=== PATIENT | male | born 1980 | race Two or more races ===

== ENCOUNTER 2022-10-07 11:50 | Emergency (ER) | payer OTHER, SELFPAY ==
[2022-10-07 11:52] VITALS: BP 122/80; PULSE 80; RESP 18; TEMP 36.8; O2SAT 100; BMI 26.4
--- NOTE | 2022-10-07 12:31 | ED.GENADULT ---
HPI - General Adult General Chief complaint: Skin/Abscess/Foreign Body Stated complaint: Cyst on R Leg Time Seen by Provider: 10/07/22 12:31 Source: patient Mode of arrival: ambulatory Limitations: no limitations History of Present Illness HPI narrative: Patient is a 42 year old assigned male at with no reported medical history presenting to the emergency department today with a cyst on his right leg. Patient states that for the last few days he has had a cyst developing on his right leg. Patient states that it started as an ingrown hair and he did pop it but it is still swollen and painful. Patient denies any dizziness, lightheadedness, abdominal pain, nausea, vomiting, fever, chills, blurry vision, double vision, loss of vision, chest pain, difficulty breathing, shortness of breath, back pain, night sweats, pain with urination, increased urinary frequency, increased urinary urgency, blood in his urine or stool, syncope or a near syncopal episode, recent trauma or falls, bowel incontinence, bladder incontinence, bowel retention, bladder retention, or any other complaints at this time. Onset (ago): day(s) Location: right and lower extremity Radiation: non-radiation Severity: mild Severity scale (1-10): 3 Quality: dull Pain Consistency: constant Relieving factors: none Exacerbating factors: none Associated symptoms: denies other symptoms Treatments prior to arrival: none Related Data Previous Rx's Medication Instructions Recorded cephalexin 500 mg capsule 500 mg PO Q6H 7 days #28 caps 10/07/22 doxycycline hyclate 100 mg tablet 100 mg PO BID 7 days #14 tabs 10/07/22 Allergies Allergy/AdvReac Type Severity Reaction Status Date / Time No Known Allergies Allergy Verified 10/07/22 13:11 Review of Systems Constitutional: Constitutional: Reports no additional constitutional complaints, Denies chills, Denies fever(s) and Denies night sweats Eyes: Eyes: Reports no additional eye complaints, Denies blurry vision, Denies change in vision, Denies diplopia, Denies eye discharge, Denies loss of vision and Denies eye pain ENT: Denies dizziness Cardiovascular: Cardiovascular: Reports no additional cardiovascular complaints, Denies chest pain, Denies lightheadedness, Denies Loss of Consciousness and Denies dyspnea Respiratory: Respiratory: Reports no additional respiratory complaints and Denies dyspnea Gastrointestinal: Gastrointestinal: Reports no additional gastrointestinal complaints, Denies abdominal pain, Denies melena, Denies hematochezia, Denies change in bowel habits and Denies change in stool character Genitourinary: Genitourinary: Reports no additional male genitourinary complaints, Denies hematuria, Denies oliguria, Denies difficulty urinating, Denies dysuria, Denies urinary frequency, Denies urinary hesitancy, Denies urinary incontinence and Denies urinary urgency Musculoskeletal: Musculoskeletal: Reports no additional musculoskeletal complaints, Denies numbness and Denies tingling Integumentary/Breasts: Comments: right leg cyst Neurologic: Denies dizziness, Denies loss of vision, Denies numbness and Denies tingling Psychiatric: Psychiatric: Reports no additional psychiatric complaints Endocrine: Endocrine: Reports no additional endocrine complaints Hematologic/Lymphatic: Hematologic/Lymphatic: Reports no additional hematologic/lymphatic complaints Allergic/Immunologic: Allergic/Immunologic: Reports no additional allergic/immunologic complaints PMFSH Past Medical History Attestation statement: The following information was validated with the patient. Source: old records reviewed Social History Social History Advance Directives: No Advance Directives Information Provided: Yes Physical Exam ED Vital Signs: Vital Signs - 24 hr 10/07/22 11:52 Temperature 98.3 F Pulse Rate 80 Respiratory Rate 18 Blood Pressure 122/80 Pulse Oximetry 100 Oxygen Delivery Method Room Air BMI result Body Mass Index 26.4 Const General: cooperative, no acute distress, alert and awake Nutritional Appearance: well nourished Orientation/consciousness: patient oriented x3 Limitations: no limitations [facility] Head: Yes normal to inspection and Yes atraumatic Ears: hearing grossly normal bilaterally and external ears normal General nose exam: Normal external nose present, no nasal discharge noted and no epistaxis Face and sinus: Yes normal facial exam, No abrasion and No laceration Mouth: Normal oral and palatal mucosa present, no drooling and no muffled voice Eyes General: appearance normal, both eyes and all related structures Periorbital: periorbital findings normal Eyelids: Yes eyelids normal Conjunctivae: conjunctivae normal Pupils: Equal, round and reactive pupils present EOM: EOMs intact bilaterally Neck Neck: Yes normal visual inspection, Yes full ROM and Yes no lymphadenopathy Chest Chest palpation & inspection: normal inspection of the chest Resp Effort & Inspection: normal respiratory effort and able to speak in complete sentences Auscultation: clear to auscultation bilaterally Cardio Rate: regular rate Rhythm: regular rhythm GI Inspection: Yes normal to inspection Palpation (GI): Soft to palpation, not firm, nontender, no guarding and not rigid Skin Other: small area of erythema to the right upper leg just superior to the right knee with a small area of dark tissue in the center Neuro General: patient oriented x3 and moves all extremities Cranial nerves: Yes Equal, round and reactive pupils present Cognition (Neuro): normal cognition Motor exam (neuro): 5/5 motor strength present throughout Sensory Exam: Normal double simultaneous stimulation for sensation Coordination: [id number] test normal Extrem General: Yes normal to inspection, Yes full ROM and Yes capillary refill normal Psych Appearance: grossly normal Mental Status: mental status grossly normal Affect: normal affect Attitude: cooperative Thought process: Normal thought process present Thought content: Normal thought content present Insight: Good insight present (Psych) Medical Decision Making MDM Narrative Medical decision making narrative: Patient is a 42 year old assigned male at with no reported medical history presenting to the emergency department today with right leg abscess. Patient's physical exam showed a small area of erythema to the right upper leg just superior of the right knee with a small area of darker tissue to the center of the abscess. No fluctuance appreciated. Patient's clinical presentation is most consistent with a ruptured abscess and given the darker appearance to aspects of the area, MRSA is considered. Patient is not septic. I explained my physical exam findings to the patient. I answered all questions asked by the patient. I stressed the importance of the patient taking his medication as prescribed. I stressed the importance of the patient following up with his primary care provider. I stressed the importance of the patient returning to the emergency department immediately if his symptoms were to worsen or if he were to develop any dizziness, shortness of breath, difficulty breathing, chest pain, blurry vision, loss of vision, nausea, vomiting, abdominal pain, fever, chills, back pain, or any other complaints. Patient verbalized agreement and understanding with this treatment plan and discharge. Medical Records Medical records reviewed: Yes I reviewed the patient's medical records. Discharge Plan Discharge Clinical Impression: Abscess Patient Disposition: Home, Self-Care Instructions: Abscess (ED) Additional Instructions: Apply warm compresses to the area. Follow up with your primary care provider. Return to the emergency department immediately if your symptoms worsen or if you develop any dizziness, shortness of breath, difficulty breathing, chest pain, blurry vision, loss of vision, nausea, vomiting, abdominal pain, fever, chills, back pain, or any other complaints. Prescriptions: New cephalexin 500 mg capsule 500 mg PO Q6H 7 Days Qty: 28 0RF doxycycline hyclate 100 mg tablet 100 mg PO BID 7 Days Qty: 14 0RF Referrals: [facility] Family Medicine [Provider Group] (Call to establish and follow up with a primary care provider. If you already have a primary care provider, please follow up with them. ) [facility] Primary Care, [facility] [Provider Group] (Call to establish and follow up with a primary care provider. If you already have a primary care provider, please follow up with them. ) [facility] Primary Care,[facility] [Provider Group] (Call to establish and follow up with a primary care provider. If you already have a primary care provider, please follow up with them. ) Stand Alone Forms: Work/School Release Interventions: ED Discharge Assessment Last Done: 10/07/22 13:27 Discharge Date/Time: 10/07/22 13:27 Print Language: Faroese
--- OUTSIDE RECORDS SUMMARY | 2022-10-07 13:08 | XMS_ITS | Continuity of Care Document ---
:1980 Author Organization [facility] Address [address] [place] [id number]- Care Team Providers Name Role Phone Bc Chinchilla MD Primary Care Physician [place] [facility](s[place] 02/07/[place] - 03/09/[address] [address]- Attending Physician: Admtr, [id number] Admitting Physician: Admtr, [id number] Referring Physician: Admtr, [id number] Allergies, Adverse Reactions, Alerts Substance Reaction Severity Status Contrast Dye Rash Active Immunizations Given and Recorded Vaccine Date Status Refusal Reason influenza virus vaccine, inactivated 09/27/20 Given influenza virus vaccine, inactivated 08/31/19 Given influenza virus vaccine, inactivated 09/18/18 Given pneumococcal 23-valent vaccine 08/31/19 Given tetanus/diphtheria/pertussis, acel(Tdap) 11/11/11 Given Medications albuterol 90 mcg/inh inhalation powder 1 puffs, Inhalation, Every 6 hours, PRN as needed, # 1 each, 11 Refills, Maintenance, 09/27/20 15:21:00 EST, Powder, [place], [place] - [id number], 1 puffs Inhalation Every 6 hours,PRN:as needed, 180, cm, 09/27/20 15:18:00 EST, Height... Start Date: 09/27/20 Status: Ordereddivalproex sodium 250 mg oral tablet, extended release 1 tablet, By Mouth, Daily, IN THE AFTERNOON., # 30 tablet, 5 Refills, Maintenance, 01/01/21 9:04:00 EST, [place], [place] - [id number], 180, cm, 09/27/20 15:39:00 EST, Height Start Date: 01/01/21 Status: Ordereddivalproex sodium 500 mg oral tablet, extended release See Instructions, TAKE ONE TABLET BY MOUTH EVERY MORNING AND TAKE 2 TABLETS BY MOUTH EVERY NIGHT AT BEDTIME, # 90 tablet, 5 Refills, Soft Stop, 01/01/21 9:04:00 EST, Tablet, [facility], [place] - [id number], 180, cm, 09/27/20 15:39:00 ES... Start Date: 01/01/21 Status: OrderedFlovent HFA 110 mcg/inh inhalation aerosol 1 puff, Inhalation, 2 times a day, # 1 each, 11 Refills, Maintenance, 09/27/20 15:21:00 EST, Aerosol, [facility], [place] - [id number], 180, cm, 09/27/20 15:18:00 EST, Height, 96.36, kg, 12/06/18 14:07:00 EST, Dry Weight Start Date: 09/27/20 Status: OrderedhydrOXYzine pamoate 50 mg oral capsule 1 capsule, By Mouth, 4 times a day, PRN NEEDED FOR ANXIETY, # 100 each, 1 Refills, Acute, 01/29/21 12:04:00 EDT, [facility], 180, cm, 09/27/20 15:39:00 EST, Height Start Date: 01/29/21 Status: OrderedNarcan Rescue Kit Narcan Rescue Kit, See Instructions, # 1 kit, Refills 0, Tot. Refills 0, Maintenance, Use as directed, 04/27/19 20:08:59 EDT, Compound Start Date: 04/27/19 Status: OrderedPARoxetine 20 mg oral tablet 1, tablet, By Mouth, Daily, # 30 tablet, Refills 11, Tot. Refills 0, Maintenance, 11/29/20 16:20:00 EST, Route to Pharmacy Electronically, [facility], 180, cm, 09/27/20 15:39:00 EST, Height, 96.36, kg, 12/06/18 14:07:00 EST, Dry Weight Start Date: 11/29/20 Status: OrderedtraZODone 100 mg oral tablet 2, tablet, By Mouth, Daily at bedtime, # 180 tablet, Refills 5, Tot. Refills 0, Maintenance, 11/29/20 15:41:00 EST, Route to Pharmacy Electronically, [facility], 180, cm, 09/27/20 15:39:00 EST, Height, 96.36, kg, 12/06/18 14:07:00 EST, Dry Weight Start Date: 11/29/20 Status: Ordered Problem List Condition Effective Dates Status Health Status Informant Anxiety(Confirmed) Active Bipolar disorder, Active unspecified(Confirmed) Cannabis use disorder, moderate, Active dependence(Confirmed) Intermittent asthma(Confirmed) Active Intermittent explosive Active disorder(Confirmed) Polysubstance abuse(Confirmed) Active Alcohol use disorder, severe, Active dependence(Confirmed)
--- OUTSIDE RECORDS SUMMARY | 2022-10-07 13:08 | XMS_ITS | Continuity of Care Document ---
:1980 Author Organization [facility] Address [address] [place] [address]- Care Team Providers Name Role Phone Bc Chinchilla MD Primary Care Physician Encounter [facility] Date(s): 01/19/21 - 02/18/[address] [address]- Allergies, Adverse Reactions, Alerts Substance Reaction Severity [...] 11 Refills, Maintenance, 09/27/20 15:21:00 EST, Powder, [facility] [id number], 1 puffs Inhalation Every 6 hours,PRN:as needed, 180, cm, 09/27/20 15:18:00 EST, Height... Start Date: 09/27/20 Status: Ordereddivalproex sodium 250 mg oral tablet, extended release 1 tablet, By Mouth, Daily, IN THE AFTERNOON., # 30 tablet, 5 Refills, Maintenance, 01/01/21 9:04:00 EST, [place], [place] - [id number], 180, cm, 09/27/20 15:39:00 EST, Height Start Date: 01/01/21 Status: Ordereddivalproex sodium 500 mg oral tablet, extended release See Instructions, TAKE ONE TABLET BY MOUTH EVERY MORNING AND TAKE 2 TABLETS BY MOUTH EVERY NIGHT AT BEDTIME, # 90 tablet, 5 Refills, Soft Stop, 01/01/21 9:04:00 EST, Tablet, [facility], [place] - [id number], 180, cm, 09/27/20 15:39:00 ES... Start Date: 01/01/21 Status: OrderedFlovent HFA 110 mcg/inh inhalation aerosol 1 puff, Inhalation, 2 times a day, # 1 each, 11 Refills, Maintenance, 09/27/20 15:21:00 EST, Aerosol, [facility], [place] - [id number], 180, cm, 09/27/20 15:18:00 EST, Height, 96.36, kg, 12/06/18 14:07:00 EST, Dry Weight Start Date: 09/27/20 Status: OrderedhydrOXYzine pamoate 50 mg oral capsule 1 capsule, By Mouth, 4 times a day, PRN NEEDED FOR ANXIETY, # 100 each, 1 Refills, Acute, 01/29/21 12:04:00 EDT, [facility], 180, cm, 09/27/20 15:39:00 EST, Height [...] 11/29/20 16:20:00 EST, Route to Pharmacy Electronically, [facility], 180, cm, 09/27/20 15:39:00 EST, Height, 96.36, kg, 12/06/18 14:07:00 EST, Dry Weight Start Date: 11/29/20 Status: OrderedtraZODone 100 mg oral tablet 2, tablet, By Mouth, Daily at bedtime, # 180 tablet, Refills 5, Tot. Refills 0, Maintenance, 11/29/20 15:41:00 EST, Route to Pharmacy Electronically, [facility], 180, cm, 09/27/20 15:39:00 EST, Height, 96.36, kg, 12/06/18 14:07:00 EST, Dry Weight Start Date: 11/29/20 Status: Ordered Problem List Condition Effective Dates Status Health Status Informant Anxiety(Confirmed) Active Bipolar disorder, Active unspecified(Confirmed) Cannabis use disorder, moderate, Active dependence(Confirmed) Intermittent asthma(Confirmed) Active Intermittent explosive Active disorder(Confirmed) Polysubstance abuse(Confirmed) Active Alcohol use disorder, severe, Active dependence(Confirmed)
--- OUTSIDE RECORDS SUMMARY | 2022-10-07 13:08 | XMS_ITS | Continuity of Care Document ---
:1980 Author Organization [facility] Address [address] [place] [address]- Care Team Providers Name Role Phone Bc Chinchilla MD Primary Care Physician Encounter [facility] [place] Date(s): 09/27/20 - 10/27/[address] [address]- Attending Physician: Admtr, [id number] Admitting Physician: Admtr, [...] 11 Refills, Maintenance, 09/27/20 15:21:00 EST, Powder, [place], [place] - [phone], 1 puffs Inhalation Every 6 hours,PRN:as needed, 180, cm, 09/27/20 15:18:00 EST, Height... Start Date: 09/27/20 Status: Ordereddivalproex sodium 250 mg oral tablet, extended release 1 tablet, By Mouth, Daily, IN THE AFTERNOON., # 30 tablet, 5 Refills, Maintenance, 07/03/20 9:17:00 EDT, [place], [place] - [id number], 180, cm, 08/31/19 10:06:00 EDT, Height, 96.36, kg, 12/06/18 14:07:00 EST, Dry Weight Start Date: 07/03/20 Status: Ordereddivalproex sodium 500 mg oral tablet, extended release See Instructions, TAKE ONE TABLET BY MOUTH EVERY MORNING AND TAKE 2 TABLETS BY MOUTH EVERY NIGHT AT BEDTIME, # 90 tablet, 2 Refills, Soft Stop, 10/04/20 9:16:00 EST, Tablet, [facility] [place], [place] - [id number], 180, cm, 09/27/20 15:39:00 ES... Start Date: 10/04/20 Status: OrderedFlovent HFA 110 mcg/inh inhalation aerosol 1 puff, Inhalation, 2 times a day, # 1 each, 11 Refills, Maintenance, 09/27/20 15:21:00 EST, Aerosol, [facility] [place], [place] - [id number], 180, cm, 09/27/20 15:18:00 EST, Height, 96.36, kg, 12/06/18 14:07:00 EST, Dry Weight Start Date: 09/27/20 Status: OrderedhydrOXYzine pamoate 50 mg oral capsule 1 capsule, By Mouth, 4 times a day, PRN NEEDED FOR ANXIETY, # 100 capsule, 2 Refills, Maintenance, 07/27/20 10:14:00 EDT, [facility] [place], [place] - [id number], 180, cm, 08/31/19 10:06:00 EDT, Height, 96.36, kg, 12/06/18 14:07:00 EST, Dry... Start Date: 07/27/20 Status: OrderedNarcan Rescue Kit Narcan Rescue Kit, See Instructions, # 1 kit, Refills 0, Tot. Refills 0, Maintenance, Use as directed, 04/27/19 20:08:59 EDT, Compound Start Date: 04/27/19 Status: OrderedPARoxetine 20 mg oral tablet 1, tablet, By Mouth, Daily, # 30 tablet, Refills 3, Tot. Refills 3, Maintenance, 07/27/20 10:15:00 EDT, Route to Pharmacy Electronically, [facility] [place], [place] - [id number], 180, cm, 08/31/19 10:06:00 EDT, Height, 96.36, kg, 12/06/18 14:07... Start Date: 07/27/20 Status: OrderedtraZODone 100 mg oral tablet See Instructions, 2 tabs PO QHS, # 180 tablet, Refills 5, Tot. Refills 5, Maintenance, 10/13/19 15:01:28 EST, Instructions Replace Required Details, Route to Pharmacy Electronically, [id number], [facility] [place],... Start Date: 10/13/19 Status: Ordered Problem List Condition Effective Dates Status Health Status Informant Anxiety(Confirmed) Active Bipolar disorder, Active unspecified(Confirmed) Cannabis use disorder, moderate, Active dependence(Confirmed) Intermittent asthma(Confirmed) Active Intermittent explosive Active disorder(Confirmed) Polysubstance abuse(Confirmed) Active Alcohol use disorder, severe, Active dependence(Confirmed)
--- OUTSIDE RECORDS SUMMARY | 2022-10-07 13:08 | XMS_ITS | Continuity of Care Document ---
:1980 Author Organization [facility] Address [address] [place] [address]- Care Team Providers Name Role Phone Bc Chinchilla MD Primary Care Physician Encounter [facility] Date(s): 11/29/20 - 12/29/[address] [address]- Allergies, Adverse Reactions, Alerts Substance Reaction Severity [...] 11 Refills, Maintenance, 09/27/20 15:21:00 EST, Powder, [facility] [id number], 1 puffs Inhalation Every 6 hours,PRN:as needed, 180, cm, 09/27/20 15:18:00 EST, Height... Start Date: 09/27/20 Status: Ordereddivalproex sodium 250 mg oral tablet, extended release 1 tablet, By Mouth, Daily, IN THE AFTERNOON., # 30 tablet, 5 Refills, Maintenance, 07/03/20 9:17:00 EDT, [place], [place] - [id number], 180, cm, 08/31/19 10:06:00 EDT, Height, 96.36, kg, 12/06/18 14:07:00 EST, Dry Weight Start Date: 07/03/20 Status: Ordereddivalproex sodium 500 mg oral tablet, extended release See Instructions, TAKE ONE TABLET BY MOUTH EVERY MORNING AND TAKE 2 TABLETS BY MOUTH EVERY NIGHT AT BEDTIME, # 90 tablet, 2 Refills, Soft Stop, 10/04/20 9:16:00 EST, Tablet, [facility], [place] - [id number], 180, cm, 09/27/20 15:39:00 ES... Start Date: 10/04/20 Status: OrderedFlovent HFA 110 mcg/inh inhalation aerosol 1 puff, Inhalation, 2 times a day, # 1 each, 11 Refills, Maintenance, 09/27/20 15:21:00 EST, Aerosol, [facility], [place] - [phone], 180, cm, 09/27/20 15:18:00 EST, Height, 96.36, kg, 12/06/18 14:07:00 EST, Dry Weight Start Date: 09/27/20 Status: OrderedhydrOXYzine pamoate 50 mg oral capsule 1 capsule, By Mouth, 4 times a day, PRN NEEDED FOR ANXIETY, # 100 each, 1 Refills, Acute, 11/29/20 16:20:00 EST, [facility], 180, cm, 09/27/20 15:39:00 EST, Height, 96.36, kg, 12/06/18 14:07:00EST, Dry Weight Start Date: 11/29/20 Status: OrderedNarcan Rescue Kit Narcan Rescue Kit, See Instructions, # 1 kit, Refills 0, Tot. Refills 0, Maintenance, Use as directed, 04/27/19 20:08:59 EDT, Compound Start Date: 04/27/19 Status: OrderedPARoxetine 20 mg oral tablet 1, tablet, By Mouth, Daily, # 30 tablet, Refills 11, Tot. Refills 0, Maintenance, 11/29/20 16:20:00 EST, Route to Pharmacy Electronically, [facility], 180, cm, 09/27/20 15:39:00 EST, Height, 96.36, kg, 12/06/18 14:07:00 EST, Dry Weight Start Date: 11/29/20 Status: OrderedtraZODone 100 mg oral tablet 2, tablet, By Mouth, Daily at bedtime, # 180 tablet, Refills 5, Tot. Refills 0, Maintenance, 11/29/20 15:41:00 EST, Route to Pharmacy Electronically, [facility], 180, cm, 09/27/20 15:39:00 EST, Height, 96.36, kg, 12/06/18 14:07:00 EST, Dry Weight Start Date: 11/29/20 Status: Ordered Problem List Condition Effective Dates Status Health Status Informant Anxiety(Confirmed) Active Bipolar disorder, Active unspecified(Confirmed) Cannabis use disorder, moderate, Active dependence(Confirmed) Intermittent asthma(Confirmed) Active Intermittent explosive Active disorder(Confirmed) Polysubstance abuse(Confirmed) Active Alcohol use disorder, severe, Active dependence(Confirmed)
--- OUTSIDE RECORDS SUMMARY | 2022-10-07 13:08 | XMS_ITS | Continuity of Care Document ---
:[address] [facility] Address [address] [place] [address]- Care Team Providers Name Role Phone Bc Chinchilla MD Primary Care Physician [facility] Date(s): 01/01/21 - 01/31/[address] [address]- Allergies, Adverse Reactions, Alerts Substance Reaction Severity [...] 11 Refills, Maintenance, 09/27/20 15:21:00 EST, Pow[place], [facility] [id number], 1 puffs Inhalation Every 6 hours,PRN:as needed, 180, cm, 09/27/20 15:18:00 EST, Height... Start Date: 09/27/20 Status: Ordereddivalproex sodium 250 mg oral tablet, extended release 1 tablet, By Mouth, Daily, IN THE AFTERNOON., # 30 tablet, 5 Refills, Maintenance, 01/01/21 9:04:00 EST, [place], [place] - [id number], 180, cm, 09/27/20 15:39:00 EST, Height Start Date: 01/01/21 Status: Ordereddivalproex sodium 500 mg oral tablet, extended release See Instructions, TAKE ONE TABLET BY MOUTH EVERY MORNING AND TAKE 2 TABLETS BY MOUTH EVERY NIGHT AT BEDTIME, # 90 tablet, 5 Refills, Soft Stop, 01/01/21 9:04:00 EST, Tablet, [facility], [place] - [id number], 180, cm, 09/27/20 15:39:00 ES... Start Date: 01/01/21 Status: OrderedFlovent HFA 110 mcg/inh inhalation aerosol 1 puff, Inhalation, 2 times a day, # 1 each, 11 Refills, Maintenance, 09/27/20 15:21:00 EST, Aerosol, [facility], [place] - [id number], 180, cm, 09/27/20 15:18:00 EST, Height, 96.36, kg, 12/06/18 14:07:00 EST, Dry Weight Start Date: 09/27/20 Status: OrderedhydrOXYzine pamoate 50 mg oral capsule 1 capsule, By Mouth, 4 times a day, PRN NEEDED FOR ANXIETY, # 100 each, 1 Refills, Acute, 01/29/21 12:04:00 EDT, [facility], 180, cm, 09/27/20 15:39:00 EST, Height [...] 11/29/20 16:20:00 EST, Route to Pharmacy Electronically, [facility], 180, cm, 09/27/20 15:39:00 EST, Height, 96.36, kg, 12/06/18 14:07:00 EST, Dry Weight Start Date: 11/29/20 Status: OrderedtraZODone 100 mg oral tablet 2, tablet, By Mouth, Daily at bedtime, # 180 tablet, Refills 5, Tot. Refills 0, Maintenance, 11/29/20 15:41:00 EST, Route to Pharmacy Electronically, [facility], 180, cm, 09/27/20 15:39:00 EST, Height, 96.36, kg, 12/06/18 14:07:00 EST, Dry Weight Start Date: 11/29/20 Status: Ordered Problem List Condition Effective Dates Status Health Status Informant Anxiety(Confirmed) Active Bipolar disorder, Active unspecified(Confirmed) Cannabis use disorder, moderate, Active dependence(Confirmed) Intermittent asthma(Confirmed) Active Intermittent explosive Active disorder(Confirmed) Polysubstance abuse(Confirmed) Active Alcohol use disorder, severe, Active dependence(Confirmed)
--- OUTSIDE RECORDS SUMMARY | 2022-10-07 13:08 | XMS_ITS | Continuity of Care Document ---
:1980 Author Organization [facility] Address [address] [place] [address]- Care Team Providers Name Role Phone Bc Chinchilla MD Primary Care Physician Encounter [facility] Date(s): 11/29/20 - 12/29/[address] [address]- Allergies, Adverse Reactions, Alerts Substance Reaction Severity [...] 11 Refills, Maintenance, 09/27/20 15:21:00 EST, Powder, [facility] [id number], 1 puffs Inhalation Every 6 hours,PRN:as needed, 180, cm, 09/27/20 15:18:00 EST, Height... Start Date: 09/27/20 Status: Ordereddivalproex sodium 250 mg oral tablet, extended release 1 tablet, By Mouth, Daily, IN THE AFTERNOON., # 30 tablet, 5 Refills, Maintenance, 07/03/20 9:17:00 EDT, [place], [place] - [id number], 180, cm, 08/31/19 10:06:00 EDT, Height, 96.36, kg, 12/06/18 14:07:00 EST, Dry Weight Start Date: 07/03/20 Status: Ordereddivalproex sodium 500 mg oral tablet, extended release See Instructions, TAKE ONE TABLET BY MOUTH EVERY MORNING AND TAKE 2 TABLETS BY MOUTH EVERY NIGHT AT BEDTIME, # 90 tablet, 2 Refills, Soft Stop, 10/04/20 9:16:00 EST, Tablet, [facility], [place] - [id number], 180, cm, 09/27/20 15:39:00 ES... Start Date: 10/04/20 Status: OrderedFlovent HFA 110 mcg/inh inhalation aerosol 1 puff, Inhalation, 2 times a day, # 1 each, 11 Refills, Maintenance, 09/27/20 15:21:00 EST, Aerosol, [facility], [place] - [id number], 180, cm, 09/27/20 15:18:00 EST, Height, 96.36, kg, 12/06/18 14:07:00 EST, Dry Weight Start Date: 09/27/20 Status: OrderedhydrOXYzine pamoate 50 mg oral capsule 1 capsule, By Mouth, 4 times a day, PRN NEEDED FOR ANXIETY, # 100 each, 1 Refills, Acute, 11/29/20 16:20:00 EST, [facility], 180, cm, 09/27/20 15:39:00 EST, Height, 96.36, [...] 11/29/20 16:20:00 EST, Route to Pharmacy Electronically, [facility], 180, cm, 09/27/20 15:39:00 EST, Height, 96.36, kg, 12/06/18 14:07:00 EST, Dry Weight Start Date: 11/29/20 Status: OrderedtraZODone 100 mg oral tablet 2, tablet, By Mouth, Daily at bedtime, # 180 tablet, Refills 5, Tot. Refills 0, Maintenance, 11/29/20 15:41:00 EST, Route to Pharmacy Electronically, [facility], 180, cm, 09/27/20 15:39:00 EST, [...]
--- OUTSIDE RECORDS SUMMARY | 2022-10-07 13:08 | XMS_ITS | Continuity of Care Document ---
:1980 Author Organization [facility] Address [address] [place] [address]- Care Team Providers Name Role Phone Bc Chinchilla MD Primary Care Physician [facility] Date(s): 11/28/20 - 12/28/[address] [address]- Allergies, Adverse Reactions, Alerts Substance Reaction Severity [...] 11 Refills, Maintenance, 09/27/20 15:21:00 EST, Powder, [facility] [phone], 1 puffs Inhalation Every 6 hours,PRN:as needed, 180, cm, 09/27/20 15:18:00 EST, Height... Start Date: 09/27/20 Status: Ordereddivalproex sodium 250 mg oral tablet, extended release 1 tablet, By Mouth, Daily, IN THE AFTERNOON., # 30 tablet, 5 Refills, Maintenance, 07/03/20 9:17:00 EDT, [place], [place] - [id number], 180, cm, 08/31/19 10:06:00 EDT, Height, 96.36, kg, 12/06/18 14:07:00 EST, Dry Weight Start Date: 07/03/20 Status: Ordereddivalproex sodium 500 mg oral tablet, extended release See Instructions, TAKE ONE TABLET BY MOUTH EVERY MORNING AND TAKE 2 TABLETS BY MOUTH EVERY NIGHT AT BEDTIME, # 90 tablet, 2 Refills, Soft Stop, 10/04/20 9:16:00 EST, Tablet, [facility], [place] - [id number], 180, cm, 09/27/20 15:39:00 ES... Start Date: 10/04/20 Status: OrderedFlovent HFA 110 mcg/inh inhalation aerosol 1 puff, Inhalation, 2 times a day, # 1 each, 11 Refills, Maintenance, 09/27/20 15:21:00 EST, Aerosol, [place], [place] - [id number], 180, cm, 09/27/20 15:18:00 EST, Height, 96.36, kg, 12/06/18 14:07:00 EST, Dry Weight Start Date: 09/27/20 Status: OrderedhydrOXYzine pamoate 50 mg oral capsule 1 capsule, By Mouth, 4 times a day, PRN NEEDED FOR ANXIETY, # 100 each, 1 Refills, Acute, 11/29/20 16:20:00 EST, [facility], 180, cm, 09/27/20 15:39:00 EST, Height, [...] 11/29/20 16:20:00 EST, Route to Pharmacy Electronically, [facility], 180, cm, 09/27/20 15:39:00 EST, Height, 96.36, kg, 12/06/18 14:07:00 EST, Dry Weight Start Date: 11/29/20 Status: OrderedtraZODone 100 mg oral tablet 2, tablet, By Mouth, Daily at bedtime, # 180 tablet, Refills 5, Tot. Refills 0, Maintenance, 11/29/20 15:41:00 EST, Route to Pharmacy Electronically, [facility], 180, cm, 09/27/20 15:39:00 EST, [...]
--- OUTSIDE RECORDS SUMMARY | 2022-10-07 13:08 | XMS_ITS | Continuity of Care Document ---
:1980 Author Organization [facility] Address [address] [place] [address]- Care Team Providers Name Role Phone Bc Chinchilla MD Primary Care Physician [facility] Date(s): 05/25/20 - 06/24/[address] [address]- [place] States Allergies, Adverse Reactions, Alerts Substance Reaction Severity Status Contrast Dye Rash Active Immunizations Given and Recorded Vaccine Date Status Refusal Reason influenza virus vaccine, inactivated 08/31/19 Given influenza virus vaccine, inactivated 09/18/18 Given pneumococcal 23-valent vaccine 08/31/19 Given tetanus/diphtheria/pertussis, acel(Tdap) 11/11/11 Given Medications albuterol 90 mcg/inh inhalation powder 1 puffs, Inhalation, Every 6 hours, PRN as needed, # 1 application, 11 Refills, Maintenance, 08/31/19 10:44:35 EDT, [place], 1 puffs Inhalation Every 6 hours,PRN:as needed Start Date: 08/31/19 Status: Ordereddivalproex sodium 250 mg oral tablet, extended release 1 tablet, By Mouth, Daily, IN THE AFTERNOON., # 30 tablet, 2 Refills, Maintenance, 03/20/20 14:05:00EDT, [facility], 180, cm, 08/31/19 10:06:00 EDT, Height, 96.36, kg, 12/06/18 14:07:00 EST, Dry Weight Start Date: 03/20/20 Status: Ordereddivalproex sodium 500 mg oral tablet, extended release See Instructions, TAKE ONE TABLET BY MOUTH EVERY MORNING AND TAKE 2 TABLETS BY MOUTH EVERY NIGHT AT BEDTIME, # 90 tablet, 3 Refills, Soft Stop, 04/21/20 13:17:00 EDT, Tablet, [place], [place] -, 180, cm, 08/31/19 10:06:00 EDT, Height,... Start Date: 04/21/20 Status: OrderedFlovent HFA 110 mcg/inh inhalation aerosol 1 puff, Inhalation, 2 times a day, # 1 each, 11 Refills, Maintenance, 08/31/19 10:44:34 EDT, Aerosol Start Date: 08/31/19 Status: OrderedhydrOXYzine pamoate 50 mg oral capsule 1 capsule, By Mouth, 4 times a day, PRN NEEDED FOR ANXIETY, # 100 capsule, 2 Refills, Acute, 04/21/20 11:50:00 EDT, [facility], 180, cm, 08/31/19 10:06:00 EDT, Height, 96.36, kg, 12/06/18 14:07:00 EST, Dry Weight Start Date: 04/21/20 Status: OrderedNarcan Rescue Kit Narcan Rescue Kit, See Instructions, # 1 kit, Refills 0, Tot. Refills 0, Maintenance, Use as directed, 04/27/19 20:08:59 EDT, Compound Start Date: 04/27/19 Status: OrderedPARoxetine 20 mg oral tablet 1, tablet, By Mouth, Daily, # 30 tablet, Refills 3, Tot. Refills 0, Maintenance, 03/20/20 14:05:00 EDT, Route to Pharmacy Electronically, [facility], 180, cm, 08/31/19 10:06:00 EDT, Height, 96.36,kg, 12/06/18 14:07:00 EST, Dry Weight Start Date: 03/20/20 Status: OrderedtraZODone 100 mg oral tablet See Instructions, 2 tabs PO QHS, # 180 tablet, Refills 5, Tot. Refills 5, Maintenance, 10/13/19 15:01:28 EST, Instructions Replace Required Details, Route to Pharmacy Electronically, [id number], [facility],... Start Date: 10/13/19 Status: Ordered Problem List Condition Effective Dates Status Health Status Informant Anxiety(Confirmed) Active Bipolar disorder, Active unspecified(Confirmed) Cannabis use disorder, moderate, Active dependence(Confirmed) Intermittent asthma(Confirmed) Active Intermittent explosive Active disorder(Confirmed) Polysubstance abuse(Confirmed) Active Alcohol use disorder, severe, Active dependence(Confirmed)
--- OUTSIDE RECORDS SUMMARY | 2022-10-07 13:08 | XMS_ITS | Continuity of Care Document ---
:1980 Author Organization [facility] Address [address] [place] [address]- Care Team Providers Name Role Phone Bc Chinchilla MD Primary Care Physician [facility] Date(s): 10/27/20 - 11/26/[address] [address]- Allergies, Adverse Reactions, Alerts Substance Reaction Severity [...] 11 Refills, Maintenance, 09/27/20 15:21:00 EST, Powder, [facility] [id number], 1 puffs Inhalation Every 6 hours,PRN:as needed, 180, cm, 09/27/20 15:18:00 EST, Height... Start Date: 09/27/20 Status: Ordereddivalproex sodium 250 mg oral tablet, extended release 1 tablet, By Mouth, Daily, IN THE AFTERNOON., # 30 tablet, 5 Refills, Maintenance, 07/03/20 9:17:00 EDT, [place], [place] - [id number], 180, cm, 08/31/19 10:06:00 EDT, Height, 96.36, kg, 12/06/18 14:07:00 EST, Dry Weight Start Date: 07/03/20 Status: Ordereddivalproex sodium 500 mg oral tablet, extended release See Instructions, TAKE ONE TABLET BY MOUTH EVERY MORNING AND TAKE 2 TABLETS BY MOUTH EVERY NIGHT AT BEDTIME, # 90 tablet, 2 Refills, Soft Stop, 10/04/20 9:16:00 EST, Tablet, [facility], [place] - [id number], 180, cm, 09/27/20 15:39:00 ES... Start Date: 10/04/20 Status: OrderedFlovent HFA 110 mcg/inh inhalation aerosol 1 puff, Inhalation, 2 times a day, # 1 each, 11 Refills, Maintenance, 09/27/20 15:21:00 EST, Aerosol, [facility], [place] - [id number], 180, cm, 09/27/20 15:18:00 EST, Height, 96.36, kg, 12/06/18 14:07:00 EST, Dry Weight Start Date: 09/27/20 Status: OrderedhydrOXYzine pamoate 50 mg oral capsule 1 capsule, By Mouth, 4 times a day, PRN NEEDED FOR ANXIETY, # 100 capsule, 2 Refills, Maintenance, 07/27/20 10:14:00 EDT, [facility], [place] - [id number], 180, cm, 08/31/19 10:06:00 EDT, Height, 96.36, [...] 07/27/20 10:15:00 EDT, Route to Pharmacy Electronically, [facility] [place] - [id number], 180, cm, 08/31/19 10:06:00 EDT, Height, 96.36, kg, 12/06/18 14:07... Start Date: 07/27/20 Status: OrderedtraZODone 100 mg oral tablet See Instructions, 2 tabs PO QHS, # 180 tablet, Refills 5, Tot. Refills 5, Maintenance, 10/13/19 15:01:28 EST, Instructions Replace Required Details, Route to Pharmacy Electronically, [id number], [facility],... Start Date: 10/13/19 Status: Ordered Problem List Condition Effective Dates Status Health Status Informant Anxiety(Confirmed) Active Bipolar disorder, Active unspecified(Confirmed) Cannabis use disorder, moderate, Active dependence(Confirmed) Intermittent asthma(Confirmed) Active Intermittent explosive Active disorder(Confirmed) Polysubstance abuse(Confirmed) Active Alcohol use disorder, severe, Active dependence(Confirmed)
--- OUTSIDE RECORDS SUMMARY | 2022-10-07 13:08 | XMS_ITS | Continuity of Care Document ---
:1980 Author Organization [facility] Address [address] [place] [address]- Care Team Providers Name Role Associate Dean Of Women MD, Quinten Charles Primary Care Physician [facility] Date[facility]s): 07/03/21 - 08/02/[address] [address]- Allergies, Adverse Reactions, Alerts Substance Reaction Severity [...] 11 Refills, Maintenance, 09/27/20 15:21:00 EST, Powder, [facility] [place] [place] - [id number], 1 puffs Inhalation Every 6 hours,PRN:as needed, 180, cm, 09/27/20 15:18:00 EST, Height... Start Date: 09/27/20 Status: Ordereddivalproex sodium 250 mg oral tablet, extended release See Instructions, TAKE ONE TABLET BY MOUTH DAILY IN THE afternoon, # 30 tablet, 0 Refills, Maintenance, [facility], 180, cm, 02/16/21 15:17:00 EDT, Height Start Date: 07/04/21 Status: Ordereddivalproex sodium 500 mg oral tablet, extended release See Instructions, TAKE ONE TABLET BY MOUTH EVERY MORNING AND TAKE 2 TABLETS BY MOUTH EVERY NIGHT AT BEDTIME, # 90 tablet, 5 Refills, Maintenance, 07/03/21 9:54:00 EDT, [facility] [id number], 180, cm, 02/16/21 15:17:00 EDT, Height Start Date: 07/03/21 Status: OrderedFlovent HFA 110 mcg/inh inhalation aerosol 1 puff, Inhalation, 2 times a day, # 1 each, 11 Refills, Maintenance, 09/27/20 15:21:00 EST, Aerosol, [facility] - [id number], 180, cm, 09/27/20 15:18:00 EST, Height, 96.36, kg, 12/06/18 14:07:00 EST, Dry Weight Start Date: 09/27/20 Status: OrderedhydrOXYzine pamoate 50 mg oral capsule 1 capsule, By Mouth, 4 times a day, PRN NEEDED FOR ANXIETY, # 100 each, 0 Refills, Acute, 07/04/21 12:13:00 EDT, [facility], 180, cm, 02/16/21 15:17:00 EDT, Height Start Date: 07/04/21 Status: OrderedNarcan Rescue Kit Narcan Rescue Kit, See Instructions, # 1 kit, Refills 0, Tot. Refills 0, Maintenance, Use as directed, 04/27/19 20:08:59 EDT, Compound Start Date: 04/27/19 Status: OrderedPARoxetine 20 mg oral tablet 1, tablet, By Mouth, Daily, # 30 tablet, Refills 11, Tot. Refills 0, Maintenance, 11/29/20 16:20:00 EST, Route to Pharmacy Electronically, [facility], 180, cm, 09/27/20 15:39:00 EST, Height, 96.36, kg, 12/06/18 14:07:00 EST, Dry Weight Start Date: 11/29/20 Status: OrderedtraZODone 100 mg oral tablet 2, tablet, By Mouth, Daily at bedtime, # 180 tablet, Refills 5, Tot. Refills 0, Maintenance, 11/29/20 15:41:00 EST, Route to Pharmacy Electronically, [facility], 180, cm, 09/27/20 15:39:00 EST, Height, 96.36, kg, 12/06/18 14:07:00 EST, Dry Weight Start Date: 11/29/20 Status: Ordered Problem List Condition Effective Dates Status Health Status Informant Anxiety(Confirmed) Active Bipolar disorder, Active unspecified(Confirmed) Cannabis use disorder, moderate, Active dependence(Confirmed) Intermittent asthma(Confirmed) Active Intermittent explosive Active disorder(Confirmed) Polysubstance abuse(Confirmed) Active Alcohol use disorder, severe, Active dependence(Confirmed)
--- OUTSIDE RECORDS SUMMARY | 2022-10-07 13:08 | XMS_ITS | Continuity of Care Document ---
:1980 Author Organization [facility] Address [address] [place] [address]- Care Team Providers Name Role Full Stack Python Developer MD, Quinten Charles Primary Care Physician [facility] Date[facility]): 06/01/21 - 07/01/[address] [address]- Allergies, Adverse Reactions, Alerts Substance Reaction Severity [...] 11 Refills, Maintenance, 09/27/20 15:21:00 EST, Powder, [facility] [id number], 1 puffs Inhalation Every 6 hours,PRN:as needed, 180, cm, 09/27/20 15:18:00 EST, Height... Start Date: 09/27/20 Status: Ordereddivalproex sodium 250 mg oral tablet, extended release 1 tablet, By Mouth, Daily, IN THE AFTERNOON., # 30 tablet, 5 Refills, Maintenance, 01/01/21 9:04:00 EST, [place], [place] - [id number], 180, cm, 09/27/20 15:39:00 EST, Height Start Date: 01/01/21 Status: Ordereddivalproex sodium 500 mg oral tablet, extended release See Instructions, TAKE ONE TABLET BY MOUTH EVERY MORNING AND TAKE 2 TABLETS BY MOUTH EVERY NIGHT AT BEDTIME, # 90 tablet, 5 Refills, Soft Stop, 01/01/21 9:04:00 EST, Tablet, [facility], [place] - [id number], 180, cm, 09/27/20 15:39:00 ES... Start Date: 01/01/21 Status: OrderedFlovent HFA 110 mcg/inh inhalation aerosol 1 puff, Inhalation, 2 times a day, # 1 each, 11 Refills, Maintenance, 09/27/20 15:21:00 EST, Aerosol, [facility], [place] - [id number], 180, cm, 09/27/20 15:18:00 EST, Height, 96.36, kg, 12/06/18 14:07:00 EST, Dry Weight Start Date: 09/27/20 Status: OrderedhydrOXYzine pamoate 50 mg oral capsule 1 capsule, By Mouth, 4 times a day, PRN NEEDED FOR ANXIETY, # 100 each, 0 Refills, Acute, 06/04/21 15:24:00 EDT, [facility], 180, cm, 02/16/21 15:17:00 EDT, Height Start Date: 06/04/21 Status: OrderedNarcan Rescue Kit Narcan Rescue Kit, See Instructions, # 1 kit, Refills 0, Tot. Refills 0, Maintenance, Use as directed, 04/27/19 20:08:59 EDT, Compound Start Date: 04/27/19 Status: OrderedPARoxetine 20 mg oral tablet 1, tablet, By Mouth, Daily, # 30 tablet, Refills 11, Tot. Refills 0, Maintenance, 11/29/20 16:20:00 EST, Route to Pharmacy Electronically, [facility], 180, cm, 09/27/20 15:39:00 EST, Height, 96.36, kg, 12/06/18 14:07:00 EST, Dry Weight Start Date: 11/29/20 Status: OrderedtraZODone 100 mg oral tablet 2, tablet, By Mouth, Daily at bedtime, # 180 tablet, Refills 5, Tot. Refills 0, Maintenance, 11/29/20 15:41:00 EST, Route to Pharmacy Electronically, [facility], 180, cm, 09/27/20 15:39:00 EST, Height, 96.36, kg, 12/06/18 14:07:00 EST, Dry Weight Start Date: 11/29/20 Status: Ordered Problem List Condition Effective Dates Status Health Status Informant Anxiety(Confirmed) Active Bipolar disorder, Active unspecified(Confirmed) Cannabis use disorder, moderate, Active dependence(Confirmed) Intermittent asthma(Confirmed) Active Intermittent explosive Active disorder(Confirmed) Polysubstance abuse(Confirmed) Active Alcohol use disorder, severe, Active dependence(Confirmed)
--- OUTSIDE RECORDS SUMMARY | 2022-10-07 13:08 | XMS_ITS | Continuity of Care Document ---
:1980 Author Organization [facility] Address [address] [place] [address]- Care Team Providers Name Role Phone Bc Chinchilla MD Primary Care Physician [facility] Date[facility]s): 10/03/20 - 11/02/[address] [address]- Allergies, Adverse Reactions, Alerts Substance Reaction Severity [...] Maintenance, 09/27/20 15:21:00 EST, Powder, [facility] [phone], 1 puffs Inhalation Every 6 hours,PRN:as needed, 180, cm, 09/27/20 15:18:00 EST, Height... Start Date: 09/27/20 Status: Ordereddivalproex sodium 250 mg oral tablet, extended release 1 tablet, By Mouth, Daily, IN THE AFTERNOON., # 30 tablet, 5 Refills, Maintenance, 07/03/20 9:17:00 EDT, [place], [place] - [id number], 180, cm, 08/31/19 10:06:00 EDT, Height, 96.36, kg, 12/06/18 14:07:00 EST, Dry Weight Start Date: 07/03/20 Status: Ordereddivalproex sodium 500 mg oral tablet, extended release See Instructions, TAKE ONE TABLET BY MOUTH EVERY MORNING AND TAKE 2 TABLETS BY MOUTH EVERY NIGHT AT BEDTIME, # 90 tablet, 2 Refills, Soft Stop, 10/04/20 9:16:00 EST, Tablet, [facility], [place] - [id number], 180, cm, 09/27/20 15:39:00 ES... Start Date: 10/04/20 Status: OrderedFlovent HFA 110 mcg/inh inhalation aerosol 1 puff, Inhalation, 2 times a day, # 1 each, 11 Refills, Maintenance, 09/27/20 15:21:00 EST, Aerosol, [facility], [place] - [id number], 180, cm, 09/27/20 15:18:00 EST, Height, 96.36, kg, 12/06/18 14:07:00 EST, Dry Weight Start Date: 09/27/20 Status: OrderedhydrOXYzine pamoate 50 mg oral capsule 1 capsule, By Mouth, 4 times a day, PRN NEEDED FOR ANXIETY, # 100 capsule, 2 Refills, Maintenance, 07/27/20 10:14:00 EDT, [facility], [facility] [id number], 180, cm, 08/31/19 10:06:00 EDT, Height, 96.36, [...] 07/27/20 10:15:00 EDT, Route to Pharmacy Electronically, [facility], [facility] [id number], 180, cm, 08/31/19 10:06:00 EDT, Height, 96.36, kg, 12/06/18 14:07... Start Date: 07/27/20 Status: OrderedtraZODone 100 mg oral tablet See Instructions, 2 tabs PO QHS, # 180 tablet, Refills 5, Tot. Refills 5, Maintenance, 10/13/19 15:01:28 EST, Instructions Replace Required Details, Route to Pharmacy Electronically, [id number], [facility],... Start Date: 10/13/19 Status: Ordered Problem List Condition Effective Dates Status Health Status Informant Anxiety(Confirmed) Active Bipolar disorder, Active unspecified(Confirmed) Cannabis use disorder, moderate, Active dependence(Confirmed) Intermittent asthma(Confirmed) Active Intermittent explosive Active disorder(Confirmed) Polysubstance abuse(Confirmed) Active Alcohol use disorder, severe, Active dependence(Confirmed)
--- OUTSIDE RECORDS SUMMARY | 2022-10-07 13:08 | XMS_ITS | Continuity of Care Document ---
:1980 Author Organization [facility] Address [address] [place] [address]- Care Team Providers Name Role Phone Bc Chinchilla MD Primary [facility] Phys[facility] 04/04/21 - 05/04/[address] [address]- Allergies, Adverse Reactions, Alerts Substance Reaction Severity [...] 11 Refills, Maintenance, 09/27/20 15:21:00 EST, Powder, [facility] [id number], 1 puffs Inhalation Every 6 hours,PRN:as needed, 180, cm, 09/27/20 15:18:00 EST, Height... Start Date: 09/27/20 Status: Ordereddivalproex sodium 250 mg oral tablet, extended release 1 tablet, By Mouth, Daily, IN THE AFTERNOON., # 30 tablet, 5 Refills, Maintenance, 01/01/21 9:04:00 EST, [place], [place] - [id number], 180, cm, 09/27/20 15:39:00 EST, Height Start Date: 01/01/21 Status: Ordereddivalproex sodium 500 mg oral tablet, extended release See Instructions, TAKE ONE TABLET BY MOUTH EVERY MORNING AND TAKE 2 TABLETS BY MOUTH EVERY NIGHT AT BEDTIME, # 90 tablet, 5 Refills, Soft Stop, 01/01/21 9:04:00 EST, Tablet, [facility], [place] - [id number], 180, cm, 09/27/20 15:39:00 ES... Start Date: 01/01/21 Status: OrderedFlovent HFA 110 mcg/inh inhalation aerosol 1 puff, Inhalation, 2 times a day, # 1 each, 11 Refills, Maintenance, 09/27/20 15:21:00 EST, Aerosol, [facility], [place] - [id number], 180, cm, 09/27/20 15:18:00 EST, Height, 96.36, kg, 12/06/18 14:07:00 EST, Dry Weight Start Date: 09/27/20 Status: OrderedhydrOXYzine pamoate 50 mg oral capsule 1 capsule, By Mouth, 4 times a day, PRN NEEDED FOR ANXIETY, # 100 each, 1 Refills, Acute, 04/02/21 12:29:00 EDT, [facility], 180, cm, 02/16/21 15:17:00 EDT, Height Start Date: 04/02/21 Status: OrderedNarcan Rescue Kit Narcan Rescue Kit, See Instructions, # 1 kit, Refills 0, Tot. Refills 0, Maintenance, Use as directed, 04/27/19 20:08:59 EDT, Compound Start Date: 04/27/19 Status: OrderedPARoxetine 20 mg oral tablet 1, tablet, By Mouth, Daily, # 30 tablet, Refills 11, Tot. Refills 0, Maintenance, 11/29/20 16:20:00 EST, Route to Pharmacy Electronically, [facility], 180, cm, 09/27/20 15:39:00 EST, [...]
--- OUTSIDE RECORDS SUMMARY | 2022-10-07 13:08 | XMS_ITS | Continuity of Care Document ---
:1980 Author Organization [facility] Address [address] [place] [address]- Care Team Providers Name Role Maintenance ForemanQuinten Burrows MD Primary Care Physician [facility] 09/19/22 - 09/26/22 [facility] [address], [place] [address] Attending Physician: Toni He DO Referring Physician: Quinten Burrows MD Allergies, Adverse Reactions, Alerts Substance Reaction Severity [...] 11 Refills, Maintenance, 09/27/20 15:21:00 EST, Powder, [place], [place] - [id number], 1 puffs Inhalation Every 6 hours,PRN:as needed, 180, cm, 09/27/20 15:18:00 EST, Height... Start Date: 09/27/20 Status: Ordereddivalproex sodium 250 mg oral tablet, extended release 1 tablet, By Mouth, Daily, IN THE AFTERNOON., # 30 tablet, 0 Refills, Maintenance, 09/20/22 9:59:00 EDT, [place], [place] - [id number], 180, cm, 09/19/22 15:34:00 EDT, Height Start Date: 09/20/22 Status: Ordereddivalproex sodium 500 mg oral tablet, extended release See Instructions, TAKE ONE TABLET BY MOUTH EVERY MORNING AND TAKE 2 TABLETS BY MOUTH EVERY NIGHT AT BEDTIME, # 90 tablet, 0 Refills, Maintenance, 09/20/22 9:59:00 EDT, [facility], [facility] [id number], 180, cm, 09/19/22 15:34:00 EDT, Height Start Date: 09/20/22 Status: OrderedFlovent HFA 110 mcg/inh inhalation aerosol 1 puff, Inhalation, 2 times a day, # 1 each, 11 Refills, Maintenance, 09/27/20 15:21:00 EST, Aerosol, [facility], [facility] [id number], 180, cm, 09/27/20 15:18:00 EST, Height, 96.36, kg, 12/06/18 14:07:00 EST, Dry Weight Start Date: 09/27/20 Status: OrderedhydrOXYzine pamoate 50 mg oral capsule 1 capsule, By Mouth, 4 times a day, PRN NEEDED FOR ANXIETY, for 30 days, # 120 capsule, 0 Refills, Physician Stop 10/20/22 9:59:00 EST, 09/20/22 9:59:00 EDT, [facility], [facility] [id number], 180, cm, 09/19/22 15:34:00 EDT, Height Start Date: 09/20/22 Stop Date: 10/20/22 Status: OrderedNarcan Rescue Kit Narcan Rescue Kit, See Instructions, # 1 kit, Refills 0, Tot. Refills 0, Maintenance, Use as directed, 04/27/19 20:08:59 EDT, Compound Start Date: 04/27/19 Status: OrderedPARoxetine 20 mg oral tablet 1, tablet, By Mouth, Daily, # 30 tablet, Refills 0, Tot. Refills 0, Maintenance, 09/20/22 9:59:00 EDT, Route to Pharmacy Electronically, [facility], [facility] [id number], 180, cm, 09/19/22 15:34:00 EDT, Height Start Date: 09/20/22 Status: OrderedtraZODone 100 mg oral tablet 2, tablet, By Mouth, Daily at bedtime, # 180 tablet, Refills 5, Tot. Refills 0, Maintenance, 11/29/20 15:41:00 EST, Route to Pharmacy Electronically, [facility], 180, cm, 09/27/20 15:39:00 EST, Height, 96.36, kg, 12/06/18 14:07:00 EST, Dry Weight Start Date: 11/29/20 Status: Ordered Problem List Condition Confirmation Course Effective Dates Status Health I nformant Status Anxiety Confirmed Active Bipolar disorder, Confirmed Active unspecified Cannabis use Confirmed Active disorder, moderate, dependence Intermittent asthma Confirmed Active Intermittent Confirmed Active explosive disorder Polysubstance abuse Confirmed Active Alcohol use Confirmed Active disorder, severe, dependence Vital Signs Most recent to oldest [Reference Range]: 1 Height 180 cm (09/19/22 3:34 PM) Oxygen Saturation [94-100 %] 99 % (09/19/22 3:34 PM) Pulse Rate [55-90 bpm] 76 bpm (09/19/22 3:34 PM) Blood Pressure [90-138/55-84 mm Hg] 130/85 mm Hg (09/19/22 3:34 PM) Respiratory Rate [16-30 br/min] 16 br/min (09/19/22 3:34 PM) Temperature [96.8-100.4 DegF] 97.9 DegF (09/19/22 3:34 PM) Mode of Delivery (Oxygen) Room air (09/19/22 3:34 PM) Blood pressure sites Arm, right (09/19/22 3:34 PM) Temperature Route Temporal (09/19/22 3:34 PM) Note Adán Harp: PERFORM, SIGN, VERIFY Event Display: Patient Education/Instruction Authored Date: [id number] [facility] Clinical Summary Name GUIDO HANSON Age 41 Years 1980 PCP Banker LEDEZMA, Quinten Charles PCP Visit Date 09/19/2022 15:14:00 Additional Instructions: Scheduled Appointments?? Future Appointments ?No Future Appointments Scheduled Follow-Up Instructions ?? Diagnosis Medications: Please continue your medications until treatment is completed or stopped by your provider. Discuss any questions related to medications with your provider. Medications to Continue with No Changes These medications were not printed or sent to your pharmacy Albuterol (albuterol 90 mcg/inh inhalation powder) 1 puff(s) Inhalation every 6 hours as needed. Refills: 11. Next Dose: Divalproex Sodium (divalproex sodium 250 mg oral tablet, extended release) 1 tab(s) Oral Daily. IN THE AFTERNOON.. Refills: 5. Next Dose: Fluticasone (Flovent HFA 110 mcg/inh inhalation aerosol) 1 puff Inhalation twice a day. Refills: 11. Next Dose: HydrOXYzine (hydrOXYzine pamoate 50 mg oral capsule) 1 capsule Oral 4 times a day as needed NEEDED FOR ANXIETY. Refills: 0. Next Dose: Miscellaneous Rx (Narcan Rescue Kit) Use as directed. Refills: 0. Next Dose: Paroxetine (PARoxetine 20 mg oral tablet) 1 tab(s) Oral Daily. Refills: 11. Next Dose: Trazodone (traZODone 100 mg oral tablet) 2 tab(s) Oral Daily at Bedtime. Refills: 5. Next Dose: Allergy Info:?? Contrast Dye Medications Given This Visit Future Orders ?No future orders Vital Signs Height 180 cm Weight BMI Blood Pressure 130 mm Hg/85 mm Hg Temperature 97.9 DegF Pulse Rate 76 bpm Respiratory Rate 16 br/min 02 Sat Mode of Delivery 99 %/Room air You can now view a summary of your hospital visit from the comfort of your home through a free online portal called [employer]. [employer] is a website that allows you to securely view yourmedical information including discharge summary, medications and follow-up visits. ??You can also send a secure electronic message to your doctor???s office to request appointments, renew medications or just ask a question. You can enroll at [email or web address] or register during your next office visit. Disclaimer:?? The information provided is of a general nature and is intended to be used in conjunction with the recommendations and advice of your health care practitioner. ??Every effort has been made to ensure that the information provided is accurate and complete at the time it is provided to you however, as your needs change, or, as new ??information becomes available, different or additional instructions may be required. If you have questions, please consult with your primary care provider or pharmacist, as appropriate.??This information is not intended to serve as substitution for assessment and evaluation by a qualified health care provider. If you do not have a primary care provider, you may find a [facility] provider by calling [facility] at [phone]. For information about the plan of care including goals and instructions for your diagnosis, please see the patient education orders section of this document. Patient Education Materials?? The content of this educational material or handout may have been modified, supplemented, or adaptedfrom its original content and format to support your individualized medical care. Patient Care team information Care Team PersonnelName: Quinten Burrows MD Position: [facility] Primary Care Physician Member Role: PCP Address: Address: [place], [place] - Name: Carlos Leiva RN Position: [facility] ED RN W/OE and Tasks Member Role: Primary Care Nurse Care Team Related PersonsName: DRE LEON Address: home [address] Name: MICAELA ALONZO Address: home [address] Name: OWEN EARLY Address[place] Name: ILENE ELIZABETH
--- OUTSIDE RECORDS SUMMARY | 2022-10-07 13:08 | XMS_ITS | Continuity of Care Document ---
:1980 Author Organization [facility] Address [address] [place] [address]- Care Team Providers Name Role Phone Bc Chinchilla MD Primary Care Physician [facility] Date[facility]s): 11/29/20 - 12/29/[address] [address]- Allergies, Adverse Reactions, Alerts Substance Reaction Severity [...] 11 Refills, Maintenance, 09/27/20 15:21:00 EST, Powder, [facility] [id number], 1 puffs Inhalation Every 6 hours,PRN:as needed, 180, cm, 09/27/20 15:18:00 EST, Height... Start Date: 09/27/20 Status: Ordereddivalproex sodium 250 mg oral tablet, extended release 1 tablet, By Mouth, Daily, IN THE AFTERNOON., # 30 tablet, 5 Refills, Maintenance, 07/03/20 9:17:00 EDT, [place], [place] - [id number], 180, cm, 08/31/19 10:06:00 EDT, Height, 96.36, kg, 12/06/18 14:07:00 EST, Dry Weight Start Date: 07/03/20 Status: Ordereddivalproex sodium 500 mg oral tablet, extended release See Instructions, TAKE ONE TABLET BY MOUTH EVERY MORNING AND TAKE 2 TABLETS BY MOUTH EVERY NIGHT AT BEDTIME, # 90 tablet, 2 Refills, Soft Stop, 10/04/20 9:16:00 EST, Tablet, [facility], [place] - [id number], 180, cm, 09/27/20 15:39:00 ES... Start Date: 10/04/20 Status: OrderedFlovent HFA 110 mcg/inh inhalation aerosol 1 puff, Inhalation, 2 times a day, # 1 each, 11 Refills, Maintenance, 09/27/20 15:21:00 EST, Aerosol, [facility], [place] - [id number], 180, cm, 09/27/20 15:18:00 EST, Height, 96.36, kg, 12/06/18 14:07:00 EST, Dry Weight Start Date: 09/27/20 Status: OrderedhydrOXYzine pamoate 50 mg oral capsule 1 capsule, By Mouth, 4 times a day, PRN NEEDED FOR ANXIETY, # 100 each, 1 Refills, Acute, 11/29/20 16:20:00 EST, [facility], 180, cm, 09/27/20 15:39:00 EST, [...] 11/29/20 16:20:00 EST, Route to Pharmacy Electronically, [facility], 180, cm, 09/27/20 15:39:00 EST, Height, 96.36, kg, 12/06/18 14:07:00 EST, Dry Weight Start Date: 11/29/20 Status: OrderedtraZODone 100 mg oral tablet 2, tablet, By Mouth, Daily at bedtime, # 180 tablet, Refills 5, Tot. Refills 0, Maintenance, 11/29/20 15:41:00 EST, Route to Pharmacy Electronically, [facility], 180, cm, 09/27/20 15:39:00 [...]
--- OUTSIDE RECORDS SUMMARY | 2022-10-07 13:08 | XMS_ITS | Continuity of Care Document ---
:1980 Author Organization [facility] Address [address] [place] [address]- Care Team Providers Name Role Phone Bc Chinchilla MD Primary Care Physician [facility] Date[facility]s): 02/06/21 - 03/08/[address] [address]- Allergies, Adverse Reactions, Alerts Substance Reaction Severity [...] Powder, [facility] [id number], 1 puffs Inhalation Every 6 hours,PRN:as needed, 180, cm, 09/27/20 15:18:00 EST, Height... Start Date: 09/27/20 Status: Ordereddivalproex sodium 250 mg oral tablet, extended release 1 tablet, By Mouth, Daily, IN THE AFTERNOON., # 30 tablet, 5 Refills, Maintenance, 01/01/21 9:04:00 EST, [place], [place] - [id number], 180, cm, 09/27/20 15:39:00 EST, Height Start Date: 01/01/21 Status: Ordereddivalproex sodium 500 mg oral tablet, extended release See Instructions, TAKE ONE TABLET BY MOUTH EVERY MORNING AND TAKE 2 TABLETS BY MOUTH EVERY NIGHT AT BEDTIME, # 90 tablet, 5 Refills, Soft Stop, 01/01/21 9:04:00 EST, Tablet, [facility], [place] - [id number], 180, cm, 09/27/20 15:39:00 ES... Start Date: 01/01/21 Status: OrderedFlovent HFA 110 mcg/inh inhalation aerosol 1 puff, Inhalation, 2 times a day, # 1 each, 11 Refills, Maintenance, 09/27/20 15:21:00 EST, Aerosol, [facility], [place] - [id number], 180, cm, 09/27/20 15:18:00 EST, Height, 96.36, kg, 12/06/18 14:07:00 EST, Dry Weight Start Date: 09/27/20 Status: OrderedhydrOXYzine pamoate 50 mg oral capsule 1 capsule, By Mouth, 4 times a day, PRN NEEDED FOR ANXIETY, # 100 each, 1 Refills, Acute, 01/29/21 12:04:00 EDT, [facility], 180, cm, 09/27/20 15:39:00 EST, Height [...] 11/29/20 16:20:00 EST, Route to Pharmacy Electronically, [facility], 180, cm, 09/27/20 15:39:00 EST, [...]
--- OUTSIDE RECORDS SUMMARY | 2022-10-07 13:08 | XMS_ITS | Continuity of Care Document ---
:1980 Author Organization [facility] Address [address] [place] [address]- Care Team Providers Name Role Phone Bc Chinchilla MD Primary Care Physician [facility] Date(s): 10/10/20 - 11/09/[address] [address]- Allergies, Adverse Reactions, Alerts Substance Reaction Severity [...] 11 Refills, Maintenance, 09/27/20 15:21:00 EST, Powder, [facility] [id number], 1 puffs Inhalation Every 6 hours,PRN:as needed, 180, cm, 09/27/20 15:18:00 EST, Height... Start Date: 09/27/20 Status: Ordereddivalproex sodium 250 mg oral tablet, extended release 1 tablet, By Mouth, Daily, IN THE AFTERNOON., # 30 tablet, 5 Refills, Maintenance, 07/03/20 9:17:00 EDT, [place], [place] - [id number], 180, cm, 08/31/19 10:06:00 EDT, Height, 96.36, kg, 12/06/18 14:07:00 EST, Dry Weight Start Date: 07/03/20 Status: Ordereddivalproex sodium 500 mg oral tablet, extended release See Instructions, TAKE ONE TABLET BY MOUTH EVERY MORNING AND TAKE 2 TABLETS BY MOUTH EVERY NIGHT AT BEDTIME, # 90 tablet, 2 Refills, Soft Stop, 10/04/20 9:16:00 EST, Tablet, [facility], [place] - [id number], 180, cm, 09/27/20 15:39:00 ES... Start Date: 10/04/20 Status: OrderedFlovent HFA 110 mcg/inh inhalation aerosol 1 puff, Inhalation, 2 times a day, # 1 each, 11 Refills, Maintenance, 09/27/20 15:21:00 EST, Aerosol, [facility], [place] - [id number], 180, cm, 09/27/20 15:18:00 EST, Height, 96.36, kg, 12/06/18 14:07:00 EST, Dry Weight Start Date: 09/27/20 Status: OrderedhydrOXYzine pamoate 50 mg oral capsule 1 capsule, By Mouth, 4 times a day, PRN NEEDED FOR ANXIETY, # 100 capsule, 2 Refills, Maintenance, 07/27/20 10:14:00 EDT, [facility], [facility] [id number], 180, cm, 08/31/19 10:06:00 EDT, Height, 96.36, [...] 07/27/20 10:15:00 EDT, Route to Pharmacy Electronically, [facility], [facility] [id number], 180, cm, 08/31/19 10:06:00 EDT, Height, 96.36, kg, 12/06/18 14:07... Start Date: 07/27/20 Status: OrderedtraZODone 100 mg oral tablet See Instructions, 2 tabs PO QHS, # 180 tablet, Refills 5, Tot. Refills 5, Maintenance, 10/13/19 15:01:28 EST, Instructions Replace Required Details, Route to Pharmacy Electronically, [id number], [facility],... Start Date: 10/13/19 Status: Ordered Problem List Condition Effective Dates Status Health Status Informant Anxiety(Confirmed) Active Bipolar disorder, Active unspecified(Confirmed) Cannabis use disorder, moderate, Active dependence(Confirmed) Intermittent asthma(Confirmed) Active Intermittent explosive Active disorder(Confirmed) Polysubstance abuse(Confirmed) Active Alcohol use disorder, severe, Active dependence(Confirmed)
--- OUTSIDE RECORDS SUMMARY | 2022-10-07 13:08 | XMS_ITS | Continuity of Care Document ---
:1980 Author Organization [facility] Address [address] [place] [address]- Care Team Providers Name Role Phone Bc Chinchilla MD Primary Care Physician [facility] Date[facility]s): 01/01/21 - 01/31/[address] [address]- Allergies, Adverse Reactions, Alerts Substance Reaction Severity [...] Maintenance, 09/27/20 15:21:00 EST, Powder, [facility] [id number], 1 puffs Inhalation Every 6 hours,PRN:as needed, 180, cm, 09/27/20 15:18:00 EST, Height... Start Date: 09/27/20 Status: Ordereddivalproex sodium 250 mg oral tablet, extended release 1 tablet, By Mouth, Daily, IN THE AFTERNOON., # 30 tablet, 5 Refills, Maintenance, 01/01/21 9:04:00 EST, [place], [place] - [id number], 180, cm, 09/27/20 15:39:00 EST, Height Start Date: 01/01/21 Status: Ordereddivalproex sodium 500 mg oral tablet, extended release See Instructions, TAKE ONE TABLET BY MOUTH EVERY MORNING AND TAKE 2 TABLETS BY MOUTH EVERY NIGHT AT BEDTIME, # 90 tablet, 5 Refills, Soft Stop, 01/01/21 9:04:00 EST, Tablet, [facility], [place] - [id number], 180, cm, 09/27/20 15:39:00 ES... Start Date: 01/01/21 Status: OrderedFlovent HFA 110 mcg/inh inhalation aerosol 1 puff, Inhalation, 2 times a day, # 1 each, 11 Refills, Maintenance, 09/27/20 15:21:00 EST, Aerosol, [facility], [place] - [id number], 180, cm, 09/27/20 15:18:00 EST, Height, 96.36, kg, 12/06/18 14:07:00 EST, Dry Weight Start Date: 09/27/20 Status: OrderedhydrOXYzine pamoate 50 mg oral capsule 1 capsule, By Mouth, 4 times a day, PRN NEEDED FOR ANXIETY, # 100 each, 1 Refills, Acute, 01/29/21 12:04:00 EDT, [facility], 180, cm, 09/27/20 15:39:00 EST, Height Start [...] 11/29/20 16:20:00 EST, Route to Pharmacy Electronically, [facility], 180, cm, 09/27/20 15:39:00 EST, Height, 96.36, kg, 12/06/18 14:07:00 EST, Dry Weight Start Date: 11/29/20 Status: OrderedtraZODone 100 mg oral tablet 2, tablet, By Mouth, Daily at bedtime, # 180 tablet, Refills 5, Tot. Refills 0, Maintenance, 11/29/20 15:41:00 EST, [facility] Pharm[facility], [facility] [...]
--- OUTSIDE RECORDS SUMMARY | 2022-10-07 13:08 | XMS_ITS | Continuity of Care Document ---
:1980 Author Organization [facility] Address [address] [place] [address]- Care Team Providers Name Role Phone Bc Chinchilla MD Primary Care Physician [facility] Date[facility]s): 04/25/20 - 05/28/[address] [address]- [place] Attending Physician: Primo Brito MD Admitting Physician: Primo Brito MD Allergies, Adverse Reactions, Alerts Substance Reaction [...] 30 tablet, 2 Refills, Maintenance, 03/20/20 14:05:00EDT, [facility], 180, cm, 08/31/19 10:06:00 EDT, Height, 96.36, kg, 12/06/18 14:07:00 EST, Dry Weight Start Date: 03/20/20 Status: Ordereddivalproex sodium 500 mg oral tablet, extended release See Instructions, TAKE ONE TABLET BY MOUTH EVERY MORNING AND TAKE 2 TABLETS BY MOUTH EVERY NIGHT AT BEDTIME, # 90 tablet, 3 Refills, Soft Stop, 04/21/20 13:17:00 EDT, Tablet, [facility], [place] -, 180, cm, 08/31/19 10:06:00 EDT, [...] capsule, 2 Refills, Acute, 04/21/20 11:50:00 EDT, [facility], 180, cm, 08/31/19 10:06:00 EDT, [...] 03/20/20 14:05:00 EDT, Route to Pharmacy Electronically, [facility], 180, cm, 08/31/19 10:06:00 EDT, Height, 96.36,kg, 12/06/18 14:07:00 EST, Dry Weight Start Date: 03/20/20 Status: OrderedtraZODone 100 mg oral tablet See Instructions, 2 tabs PO QHS, # 180 tablet, Refills 5, Tot. Refills 5, Maintenance, 10/13/19 15:01:28 EST, Instructions Replace Required Details, Route to Pharmacy Electronically, [id number], [facility],... Start Date: 10/13/19 Status: Ordered Problem List Condition Effective Dates Status Health Status Informant Anxiety(Confirmed) Active Bipolar disorder, Active unspecified(Confirmed) Cannabis use disorder, moderate, Active dependence(Confirmed) Intermittent asthma(Confirmed) Active Intermittent explosive Active disorder(Confirmed) Polysubstance abuse(Confirmed) Active Alcohol use disorder, severe, Active dependence(Confirmed)
--- OUTSIDE RECORDS SUMMARY | 2022-10-07 13:08 | XMS_ITS | Continuity of Care Document ---
:1980 Author Organization [facility] Address [address] [place] [address]- Care Team Providers Name Role Phone Bc Chinchilla MD [id number] Date(s): 02/16/21 - 02/23/21 [facility] [address] [place] [address]- Attending Physician: Adam Verma MD Referring Physician: Not on Staff, Referring MD Allergies, Adverse Reactions, Alerts Substance Reaction [...] Refills, Maintenance, 09/27/20 15:21:00 EST, Powder, [facility] [id number], 1 puffs Inhalation Every 6 hours,PRN:as needed, 180, cm, 09/27/20 15:18:00 EST, Height... Start Date: 09/27/20 Status: Ordereddivalproex sodium 250 mg oral tablet, extended release 1 tablet, By Mouth, Daily, IN THE AFTERNOON., # 30 tablet, 5 Refills, Maintenance, 01/01/21 9:04:00 EST, [place], [place] - [id number], 180, cm, 09/27/20 15:39:00 EST, Height Start Date: 01/01/21 Status: Ordereddivalproex sodium 500 mg oral tablet, extended release See Instructions, TAKE ONE TABLET BY MOUTH EVERY MORNING AND TAKE 2 TABLETS BY MOUTH EVERY NIGHT AT BEDTIME, # 90 tablet, 5 Refills, Soft Stop, 01/01/21 9:04:00 EST, Tablet, [place], [place] - [id number], 180, cm, 09/27/20 15:39:00 ES... Start Date: 01/01/21 Status: OrderedFlovent HFA 110 mcg/inh inhalation aerosol 1 puff, Inhalation, 2 times a day, # 1 each, 11 Refills, Maintenance, 09/27/20 15:21:00 EST, Aerosol, [facility], [place] - [id number], 180, cm, 09/27/20 15:18:00 EST, Height, 96.36, kg, 12/06/18 14:07:00 EST, Dry Weight Start Date: 09/27/20 Status: OrderedhydrOXYzine pamoate 50 mg oral capsule 1 capsule, By Mouth, 4 times a day, PRN NEEDED FOR ANXIETY, # 100 each, 1 Refills, Acute, 01/29/21 12:04:00 EDT, [facility], 180, cm, 09/27/20 15:39:00 EST, Height [...] 11/29/20 16:20:00 EST, Route to Pharmacy Electronically, [facility], 180, cm, 09/27/20 15:39:00 EST, [...] Active Alcohol use disorder, severe, Active dependence(Confirmed) Vital Signs Most recent to oldest [Reference Range]: 1 Height 180 cm (02/16/21 3:17 PM) Oxygen Saturation [94-100 %] 100 % (02/16/21 3:17 PM) Pulse Rate [55-90 bpm] 90 bpm (02/16/21 3:17 PM) Blood Pressure [90-138/55-84 mm Hg] 133/89 mm Hg (02/16/21 3:17 PM) Respiratory Rate [16-30 br/min] 18 br/min (02/16/21 3:17 PM) Temperature [96.8-100.4 DegF] 96.4 DegF *L* (02/16/21 3:17 PM) Mode of Delivery (Oxygen) Room air (02/16/21 3:17 PM) Blood pressure sites Arm, right (02/16/21 3:17 PM) Temperature Route Temporal (02/16/21 3:17 PM)
--- OUTSIDE RECORDS SUMMARY | 2022-10-07 13:09 | XMS_ITS | Continuity of Care Document ---
:1980 Author Organization [facility] Address [address] [place] [address]- Care Team Providers Name Role Phone Bc Chinchilla MD Primary Care Physician Encounter [facility] Date(s): 02/16/21 - 03/18/21 [facility] [address] [place] [address]- Attending Physician: Admtr, [id number] Admitting Physician: Admtr, [...] 11 Refills, Maintenance, 09/27/20 15:21:00 EST, [place], [place], [place] - [id number], 1 puffs Inhalation Every 6 hours,PRN:as needed, 180, cm, 09/27/20 15:18:00 EST, Height... Start Date: 09/27/20 Status: Ordereddivalproex sodium 250 mg oral tablet, extended release 1 tablet, By Mouth, Daily, IN THE AFTERNOON., # 30 tablet, 5 Refills, Maintenance, 01/01/21 9:04:00 EST, [place], [place] - [id number], 180, cm, 09/27/20 15:39:00 EST, Height Start Date: 01/01/21 Status: Ordereddivalproex sodium 500 mg oral tablet, extended release See Instructions, TAKE ONE TABLET BY MOUTH EVERY MORNING AND TAKE 2 TABLETS BY MOUTH EVERY NIGHT AT BEDTIME, # 90 tablet, 5 Refills, Soft Stop, 01/01/21 9:04:00 EST, Tablet, [facility], [place] - [id number], 180, cm, 09/27/20 15:39:00 ES... Start Date: 01/01/21 Status: OrderedFlovent HFA 110 mcg/inh inhalation aerosol 1 puff, Inhalation, 2 times a day, # 1 each, 11 Refills, Maintenance, 09/27/20 15:21:00 EST, Aerosol, [facility], [place] - [id number], 180, cm, 09/27/20 15:18:00 EST, Height, 96.36, kg, 12/06/18 14:07:00 EST, Dry Weight Start Date: 09/27/20 Status: OrderedhydrOXYzine pamoate 50 mg oral capsule 1 capsule, By Mouth, 4 times a day, PRN NEEDED FOR ANXIETY, # 100 each, 1 Refills, Acute, 01/29/21 12:04:00 EDT, [facility], 180, cm, 09/27/20 15:39:00 EST, Height [...] 11/29/20 16:20:00 EST, Route to Pharmacy Electronically, [facility], 180, cm, 09/27/20 15:39:00 EST, Height, [...]
--- OUTSIDE RECORDS SUMMARY | 2022-10-07 13:09 | XMS_ITS | Continuity of Care Document ---
:1980 Author Organization [facility] Address [address] [place] [address]- Care Team Providers Name Role Phone Bc Chinchilla MD Primary Care Physician [facility]counter [facility] Date(s): 11/14/20 - 12/14/[address] [address]- Allergies, Adverse Reactions, Alerts Substance Reaction Severity [...] 11 Refills, Maintenance, 09/27/20 15:21:00 EST, [place], [facility] [id number], 1 puffs Inhalation Every 6 hours,PRN:as needed, 180, cm, 09/27/20 15:18:00 EST, Height... Start Date: 09/27/20 Status: Ordereddivalproex sodium 250 mg oral tablet, extended release 1 tablet, By Mouth, Daily, IN THE AFTERNOON., # 30 tablet, 5 Refills, Maintenance, 07/03/20 9:17:00 EDT, [place], [place] - [id number], 180, cm, 08/31/19 10:06:00 EDT, Height, 96.36, kg, 12/06/18 14:07:00 EST, Dry Weight Start Date: 07/03/20 Status: Ordereddivalproex sodium 500 mg oral tablet, extended release See Instructions, TAKE ONE TABLET BY MOUTH EVERY MORNING AND TAKE 2 TABLETS BY MOUTH EVERY NIGHT AT BEDTIME, # 90 tablet, 2 Refills, Soft Stop, 10/04/20 9:16:00 EST, Tablet, [facility], [place] - [id number], 180, cm, 09/27/20 15:39:00 ES... Start Date: 10/04/20 Status: OrderedFlovent HFA 110 mcg/inh inhalation aerosol 1 puff, Inhalation, 2 times a day, # 1 each, 11 Refills, Maintenance, 09/27/20 15:21:00 EST, Aerosol, [facility], [place] - [id number], 180, cm, 09/27/20 15:18:00 EST, Height, 96.36, kg, 12/06/18 14:07:00 EST, Dry Weight Start Date: 09/27/20 Status: OrderedhydrOXYzine pamoate 50 mg oral capsule 1 capsule, By Mouth, 4 times a day, PRN NEEDED FOR ANXIETY, # 100 each, 1 Refills, Acute, 11/29/20 16:20:00 EST, [facility], 180, cm, 09/27/20 15:39:00 EST, Height, [...] 11/29/20 16:20:00 EST, Route to Pharmacy Electronically, [facility], 180, cm, 09/27/20 15:39:00 EST, Height, 96.36, kg, 12/06/18 14:07:00 EST, Dry Weight Start Date: 11/29/20 Status: OrderedtraZODone 100 mg oral tablet 2, tablet, By Mouth, Daily at bedtime, # 180 tablet, Refills 5, Tot. Refills 0, Maintenance, 11/29/20 15:41:00 EST, Route to Pharmacy Electronically, [facility], 180, cm, 09/27/20 15:39:00 EST, Height, 96.36, kg, 12/06/18 14:07:00 EST, Dry Weight Start Date: 11/29/20 Status: Ordered Problem List Condition Effective Dates Status Health Status Informant Anxiety(Confirmed) Active Bipolar disorder, Active unspecified(Confirmed) Cannabis use disorder, moderate, Active dependence(Confirmed) Intermittent asthma(Confirmed) Active Intermittent explosive Active disorder(Confirmed) Polysubstance abuse(Confirmed) Active Alcohol use disorder, severe, Active dependence(Confirmed)
--- OUTSIDE RECORDS SUMMARY | 2022-10-07 13:09 | XMS_ITS | Continuity of Care Document ---
:1980 Author Organization [facility] Address [address] [place] [address]- Care Team Providers Name Role Phone Bc Chinchilla MD Primary Care Physician Encounter [facility] Date(s): 06/01/20 - 07/01/[address] [address]- [place] Allergies, Adverse Reactions, Alerts Substance Reaction [...] 30 tablet, 2 Refills, Maintenance, 03/20/20 14:05:00EDT, [facility], 180, cm, 08/31/19 10:06:00 EDT, Height, 96.36, kg, 12/06/18 14:07:00 EST, Dry Weight Start Date: 03/20/20 Status: Ordereddivalproex sodium 500 mg oral tablet, extended release See Instructions, TAKE ONE TABLET BY MOUTH EVERY MORNING AND TAKE 2 TABLETS BY MOUTH EVERY NIGHT AT BEDTIME, # 90 tablet, 3 Refills, Soft Stop, 04/21/20 13:17:00 EDT, Tablet, [place], [place] -, 180, cm, 08/31/19 10:06:00 EDT, [...] capsule, 2 Refills, Acute, 04/21/20 11:50:00 EDT, [facility], 180, cm, 08/31/19 10:06:00 EDT, Height, [...] 03/20/20 14:05:00 EDT, Route to Pharmacy Electronically, [facility], 180, cm, 08/31/19 10:06:00 EDT, Height, 96.36,kg, 12/06/18 14:07:00 EST, Dry Weight Start Date: 03/20/20 Status: OrderedtraZODone 100 mg oral tablet See Instructions, 2 tabs PO QHS, # 180 tablet, Refills 5, Tot. Refills 5, Maintenance, 10/13/19 15:01:28 EST, Instructions Replace Required Details, Route to Pharmacy Electronically, [id number], [facility],... Start Date: 10/13/19 Status: Ordered Problem List Condition Effective Dates Status Health Status Informant Anxiety(Confirmed) Active Bipolar disorder, Active unspecified(Confirmed) Cannabis use disorder, moderate, Active dependence(Confirmed) Intermittent asthma(Confirmed) Active Intermittent explosive Active disorder(Confirmed) Polysubstance abuse(Confirmed) Active Alcohol use disorder, severe, Active dependence(Confirmed)
--- OUTSIDE RECORDS SUMMARY | 2022-10-07 13:09 | XMS_ITS | Continuity of Care Document ---
:1980 Author Organization [facility] Address [address] [place] [address]- Care Team Providers Name Role Phone Bc Chinchilla MD Primary Care Physician Encounter [facility] Date(s): 12/06/20 - 01/05/[address] [address]- Allergies, Adverse Reactions, Alerts Substance Reaction Severity [...] 11 Refills, Maintenance, 09/27/20 15:21:00 EST, [place], [facility] [id number], 1 puffs Inhalation Every 6 hours,PRN:as needed, 180, cm, 09/27/20 15:18:00 EST, Height... Start Date: 09/27/20 Status: Ordereddivalproex sodium 250 mg oral tablet, extended release 1 tablet, By Mouth, Daily, IN THE AFTERNOON., # 30 tablet, 5 Refills, Maintenance, 01/01/21 9:04:00 EST, [place], [place] - [id number], 180, cm, 09/27/20 15:39:00 EST, Height Start Date: 01/01/21 Status: Ordereddivalproex sodium 500 mg oral tablet, extended release See Instructions, TAKE ONE TABLET BY MOUTH EVERY MORNING AND TAKE 2 TABLETS BY MOUTH EVERY NIGHT AT BEDTIME, # 90 tablet, 5 Refills, Soft Stop, 01/01/21 9:04:00 EST, Tablet, [facility], [place] - [id number], 180, cm, 09/27/20 15:39:00 ES... Start Date: 01/01/21 Status: OrderedFlovent HFA 110 mcg/inh inhalation aerosol 1 puff, Inhalation, 2 times a day, # 1 each, 11 Refills, Maintenance, 09/27/20 15:21:00 EST, Aerosol, [facility], [place] - [id number], 180, cm, 09/27/20 15:18:00 EST, Height, 96.36, kg, 12/06/18 14:07:00 EST, Dry Weight Start Date: 09/27/20 Status: OrderedhydrOXYzine pamoate 50 mg oral capsule 1 capsule, By Mouth, 4 times a day, PRN NEEDED FOR ANXIETY, # 100 each, 1 Refills, Acute, 11/29/20 16:20:00 EST, [facility], 180, cm, 09/27/20 15:39:00 EST, [...] 11/29/20 16:20:00 EST, Route to Pharmacy Electronically, [facility], 180, cm, 09/27/20 15:39:00 EST, [...]
--- OUTSIDE RECORDS SUMMARY | 2022-10-07 13:09 | XMS_ITS | Continuity of Care Document ---
:1980 Author Organization [facility] Address [address] [place] [address]- Care Team Providers Name Role Waste Hand MD, Quinten Charles Primary Care Physician Encounter [facility] Date(s): 07/03/21 - 08/02/[address] [address]- Allergies, Adverse Reactions, Alerts Substance Reaction Severity [...] 11 Refills, Maintenance, 09/27/20 15:21:00 EST, [place], [facility] [place] [place] - [id number], 1 puffs Inhalation Every 6 hours,PRN:as needed, 180, cm, 09/27/20 15:18:00 EST, Height... Start Date: 09/27/20 Status: Ordereddivalproex sodium 250 mg oral tablet, extended release See Instructions, TAKE ONE TABLET BY MOUTH DAILY IN THE afternoon, # 30 tablet, 0 Refills, Maintenance, [facility], 180, cm, 02/16/21 15:17:00 EDT, Height Start Date: 07/04/21 Status: Ordereddivalproex sodium 500 mg oral tablet, extended release See Instructions, TAKE ONE TABLET BY MOUTH EVERY MORNING AND TAKE 2 TABLETS BY MOUTH EVERY NIGHT AT BEDTIME, # 90 tablet, 5 Refills, Maintenance, 07/03/21 9:54:00 EDT, [facility], [facility] [id number], 180, cm, 02/16/21 15:17:00 EDT, Height Start Date: 07/03/21 Status: OrderedFlovent HFA 110 mcg/inh inhalation aerosol 1 puff, Inhalation, 2 times a day, # 1 each, 11 Refills, Maintenance, 09/27/20 15:21:00 EST, Aerosol, [facility], [place] - [id number], 180, cm, 09/27/20 15:18:00 EST, Height, 96.36, kg, 12/06/18 14:07:00 EST, Dry Weight Start Date: 09/27/20 Status: OrderedhydrOXYzine pamoate 50 mg oral capsule 1 capsule, By Mouth, 4 times a day, PRN NEEDED FOR ANXIETY, # 100 each, 0 Refills, Acute, 07/04/21 12:13:00 EDT, [facility], 180, cm, 02/16/21 15:17:00 EDT, Height Start [...] 11/29/20 16:20:00 EST, Route to Pharmacy Electronically, [facility], 180, cm, 09/27/20 15:39:00 EST, Height, 96.36, kg, 12/06/18 14:07:00 EST, Dry Weight Start Date: 11/29/20 Status: OrderedtraZODone 100 mg oral tablet 2, tablet, By Mouth, Daily at bedtime, # 180 tablet, Refills 5, Tot. Refills 0, Maintenance, 11/29/20 15:41:00 EST, Route to Pharmacy Electronically, [facility], 180, cm, 09/27/20 15:39:00 [...]
--- OUTSIDE RECORDS SUMMARY | 2022-10-07 13:09 | XMS_ITS | Continuity of Care Document ---
:1980 Author Organization [facility] Address [address] [place] [address]- Care Team Providers Name Role Phone Bc Chinchilla MD Primary Care Physician Encounter [facility] Date(s): 09/28/20 - 10/28/[address] [address]- Allergies, Adverse Reactions, Alerts Substance Reaction Severity [...] 11 Refills, Maintenance, 09/27/20 15:21:00 EST, [place], [facility] [id number], 1 puffs Inhalation Every 6 hours,PRN:as needed, 180, cm, 09/27/20 15:18:00 EST, Height... Start Date: 09/27/20 Status: Ordereddivalproex sodium 250 mg oral tablet, extended release 1 tablet, By Mouth, Daily, IN THE AFTERNOON., # 30 tablet, 5 Refills, Maintenance, 07/03/20 9:17:00 EDT, [place], [place] - [id number], 180, cm, 08/31/19 10:06:00 EDT, Height, 96.36, kg, 12/06/18 14:07:00 EST, Dry Weight Start Date: 07/03/20 Status: Ordereddivalproex sodium 500 mg oral tablet, extended release See Instructions, TAKE ONE TABLET BY MOUTH EVERY MORNING AND TAKE 2 TABLETS BY MOUTH EVERY NIGHT AT BEDTIME, # 90 tablet, 2 Refills, Soft Stop, 10/04/20 9:16:00 EST, Tablet, [facility], [place] - [id number], 180, cm, 09/27/20 15:39:00 ES... Start Date: 10/04/20 Status: OrderedFlovent HFA 110 mcg/inh inhalation aerosol 1 puff, Inhalation, 2 times a day, # 1 each, 11 Refills, Maintenance, 09/27/20 15:21:00 EST, Aerosol, [facility], [place] - [id number], 180, cm, 09/27/20 15:18:00 EST, Height, 96.36, kg, 12/06/18 14:07:00 EST, Dry Weight Start Date: 09/27/20 Status: OrderedhydrOXYzine pamoate 50 mg oral capsule 1 capsule, By Mouth, 4 times a day, PRN NEEDED FOR ANXIETY, # 100 capsule, 2 Refills, Maintenance, 07/27/20 10:14:00 EDT, [facility], [facility] [id number], 180, cm, 08/31/19 10:06:00 EDT, Height, 96.36, [...] 07/27/20 10:15:00 EDT, Route to Pharmacy Electronically, [facility], [facility] [id number], 180, cm, 08/31/19 10:06:00 EDT, Height, 96.36, kg, 12/06/18 14:07... Start Date: 07/27/20 Status: OrderedtraZODone 100 mg oral tablet See Instructions, 2 tabs PO QHS, # 180 tablet, Refills 5, Tot. Refills 5, Maintenance, 10/13/19 15:01:28 EST, Instructions Replace Required Details, Route to Pharmacy Electronically, [id number], [facility],... Start Date: 10/13/19 Status: Ordered Problem List Condition Effective Dates Status Health Status Informant Anxiety(Confirmed) Active Bipolar disorder, Active unspecified(Confirmed) Cannabis use disorder, moderate, Active dependence(Confirmed) Intermittent asthma(Confirmed) Active Intermittent explosive Active disorder(Confirmed) Polysubstance abuse(Confirmed) Active Alcohol use disorder, severe, Active dependence(Confirmed)
--- OUTSIDE RECORDS SUMMARY | 2022-10-07 13:09 | XMS_ITS | Continuity of Care Document ---
:1980 Author Organization [facility] Address [address] [place] [address]- Care Team Providers Name Role Scale Attendant MD, Quinten Charles Primary Care Physician [facility] Date(s): 05/24/21 - 06/23/[address] [address]- Allergies, Adverse Reactions, Alerts Substance Reaction Severity [...] 11 Refills, Maintenance, 09/27/20 15:21:00 EST, [place], [facility] [id number], 1 puffs Inhalation Every 6 hours,PRN:as needed, 180, cm, 09/27/20 15:18:00 EST, Height... Start Date: 09/27/20 Status: Ordereddivalproex sodium 250 mg oral tablet, extended release 1 tablet, By Mouth, Daily, IN THE AFTERNOON., # 30 tablet, 5 Refills, Maintenance, 01/01/21 9:04:00 EST, [place], [place] - [id number], 180, cm, 09/27/20 15:39:00 EST, Height Start Date: 01/01/21 Status: Ordereddivalproex sodium 500 mg oral tablet, extended release See Instructions, TAKE ONE TABLET BY MOUTH EVERY MORNING AND TAKE 2 TABLETS BY MOUTH EVERY NIGHT AT BEDTIME, # 90 tablet, 5 Refills, Soft Stop, 01/01/21 9:04:00 EST, Tablet, [facility], [place] - [id number], 180, cm, 09/27/20 15:39:00 ES... Start Date: 01/01/21 Status: OrderedFlovent HFA 110 mcg/inh inhalation aerosol 1 puff, Inhalation, 2 times a day, # 1 each, 11 Refills, Maintenance, 09/27/20 15:21:00 EST, Aerosol, [facility], [place] - [id number], 180, cm, 09/27/20 15:18:00 EST, Height, 96.36, kg, 12/06/18 14:07:00 EST, Dry Weight Start Date: 09/27/20 Status: OrderedhydrOXYzine pamoate 50 mg oral capsule 1 capsule, By Mouth, 4 times a day, PRN NEEDED FOR ANXIETY, # 100 each, 0 Refills, Acute, 06/04/21 15:24:00 EDT, [facility], 180, cm, 02/16/21 15:17:00 EDT, Height [...] 16:20:00 EST, Route to Pharmacy Electronically, [facility], 180, cm, 09/27/20 15:39:00 EST, Height, 96.36, kg, 12/06/18 14:07:00 EST, Dry Weight Start Date: 11/29/20 Status: OrderedtraZODone 100 mg oral tablet 2, tablet, By Mouth, Daily at bedtime, # 180 tablet, Refills 5, Tot. Refills 0, Maintenance, 11/29/20 15:41:00 EST, Route to Pharmacy Electronically, [facility], 180, cm, 09/27/20 15:39:00 EST, Height, 96.36, kg, 12/06/18 14:07:00 EST, Dry Weight Start Date: 11/29/20 Status: Ordered Problem List Condition Effective Dates Status Health Status Informant Anxiety(Confirmed) Active Bipolar disorder, Active unspecified(Confirmed) Cannabis use disorder, moderate, Active dependence(Confirmed) Intermittent asthma(Confirmed) Active Intermittent explosive Active disorder(Confirmed) Polysubstance abuse(Confirmed) Active Alcohol use disorder, severe, Active dependence(Confirmed)
--- OUTSIDE RECORDS SUMMARY | 2022-10-07 13:09 | XMS_ITS | Continuity of Care Document ---
:1980 Author Organization [facility] Address [address] [place] [address]- Care Team Providers Name Role Manager General MD, Quinten Charles Primary Care Physician Encounter [facility] Date(s): 08/07/22 - 09/06/[address] [address]- Allergies, Adverse Reactions, Alerts Substance Reaction Severity [...] 11 Refills, Maintenance, 09/27/20 15:21:00 EST, [place], [place], [place] - [id number], 1 puffs Inhalation Every 6 hours,PRN:as needed, 180, cm, 09/27/20 15:18:00 EST, Height... Start Date: 09/27/20 Status: Ordereddivalproex sodium 250 mg oral tablet, extended release 1 tablet, By Mouth, Daily, IN THE AFTERNOON., # 30 tablet, 5 Refills, Maintenance, 08/06/21 6:39:00 EDT, [place], [place] - [id number], 180, cm, 02/16/21 15:17:00 EDT, Height Start Date: 08/06/21 Status: OrderedFlovent HFA 110 mcg/inh inhalation aerosol 1 puff, Inhalation, 2 times a day, # 1 each, 11 Refills, Maintenance, 09/27/20 15:21:00 EST, Aerosol, [facility] [place], [place] - [id number], 180, cm, 09/27/20 15:18:00 EST, Height, 96.36, kg, 12/06/18 14:07:00 EST, Dry Weight Start Date: 09/27/20 Status: OrderedhydrOXYzine pamoate 50 mg oral capsule 1 capsule, By Mouth, 4 times a day, PRN NEEDED FOR ANXIETY, # 100 capsule, 0 Refills, [facility], 180, cm, 02/16/21 15:17:00 EDT, Height Start Date: 08/06/21 Status: OrderedNarcan Rescue Kit Narcan Rescue Kit, See Instructions, # 1 kit, Refills 0, Tot. Refills 0, Maintenance, Use as directed, 04/27/19 20:08:59 EDT, Compound Start Date: 04/27/19 Status: OrderedPARoxetine 20 mg oral tablet 1, tablet, By Mouth, Daily, # 30 tablet, Refills 11, Tot. Refills 0, Maintenance, 11/29/20 16:20:00 EST, Route to Pharmacy Electronically, [facility], 180, cm, 09/27/20 15:39:00 EST, Height, 96.36, kg, 12/06/18 14:07:00 EST, Dry Weight Start Date: 11/29/20 Status: OrderedtraZODone 100 mg oral tablet 2, tablet, By Mouth, Daily at bedtime, # 180 tablet, Refills 5, Tot. Refills 0, Maintenance, 11/29/20 15:41:00 EST, Route to Pharmacy Electronically, [facility], 180, cm, 09/27/20 15:39:00 EST, [...] Alcohol use Confirmed Active disorder, severe, dependence Patient Care team information PersonnelName: Banker LEDEZMA, Quinten Charles Address: Address: [address] [place] [id number]
--- OUTSIDE RECORDS SUMMARY | 2022-10-07 13:09 | XMS_ITS | Continuity of Care Document ---
:1980 Author Organization [facility] Address [address] [place] [address]- Care Team Providers Name Role Phone Bc Chinchilla MD Primary Care Physician Encounter [facility] [place] Date(s): 05/02/20 - 06/01/[address] [address]- [place] Attending Physician: Martha Brink Admitting Physician: AdmMartha bolaños Referring Physician: AdmtrMartha Allergies, Adverse Reactions, Alerts Substance Reaction Severity [...] 30 tablet, 2 Refills, Maintenance, 03/20/20 14:05:00EDT, [facility], 180, cm, 08/31/19 10:06:00 EDT, Height, 96.36, kg, 12/06/18 14:07:00 EST, Dry Weight Start Date: 03/20/20 Status: Ordereddivalproex sodium 500 mg oral tablet, extended release See Instructions, TAKE ONE TABLET BY MOUTH EVERY MORNING AND TAKE 2 TABLETS BY MOUTH EVERY NIGHT AT BEDTIME, # 90 tablet, 3 Refills, Soft Stop, 04/21/20 13:17:00 EDT, Tablet, [place], [place] -, 180, cm, 08/31/19 10:06:00 EDT, [...] capsule, 2 Refills, Acute, 04/21/20 11:50:00 EDT, [facility], 180, cm, 08/31/19 10:06:00 EDT, [...] 03/20/20 14:05:00 EDT, Route to Pharmacy Electronically, [facility], 180, cm, 08/31/19 10:06:00 EDT, Height, 96.36,kg, 12/06/18 14:07:00 EST, Dry Weight Start Date: 03/20/20 Status: OrderedtraZODone 100 mg oral tablet See Instructions, 2 tabs PO QHS, # 180 tablet, Refills 5, Tot. Refills 5, Maintenance, 10/13/19 15:01:28 EST, Instructions Replace Required Details, Route to Pharmacy Electronically, [id number], [facility],... Start Date: 10/13/19 Status: Ordered Problem List Condition Effective Dates Status Health Status Informant Anxiety(Confirmed) Active Bipolar disorder, Active unspecified(Confirmed) Cannabis use disorder, moderate, Active dependence(Confirmed) Intermittent asthma(Confirmed) Active Intermittent explosive Active disorder(Confirmed) Polysubstance abuse(Confirmed) Active Alcohol use disorder, severe, Active dependence(Confirmed)
--- OUTSIDE RECORDS SUMMARY | 2022-10-07 13:09 | XMS_ITS | Continuity of Care Document ---
:1980 Author Organization [facility] Address [address] [place] [address]- Care Team Providers Name Role Phone Bc Chinchilla MD Primary Care Physician Encounter [facility] [facility] [id number] Date(s): 02/29/20 - 03/10/[address] [address]- [facility] Attending Physician: Martha Brink Admitting Physician: AdmMartha [...] 250 mg oral tablet, extended release 1 tablet = 250 mg, By Mouth, Daily, IN THE AFTERNOON, # 30 tablet, 2 Refills, Soft Stop, 11/15/19 11:05:00 EST, [facility] [place], [place] -, 180, cm, 08/31/19 10:06:00 EDT, Height, 96.36, kg, 12/06/18 14:07:00 EST, Dry Weight Start Date: 11/15/19 Stop Date: 02/13/20 Status: Ordereddivalproex sodium 500 mg oral tablet, extended release See Instructions, TAKE ONE TABLET BY MOUTH EVERY MORNING AND TAKE 2 TABLETS BY MOUTH EVERY NIGHT AT BEDTIME, # 90 tablet, 2 Refills, Soft Stop, 11/15/19 11:05:00 EST, Tablet, [facility] [place], [place] -, 180, cm, 08/31/19 10:06:00 EDT, Height,... Start Date: 11/15/19 Status: OrderedFlovent HFA 110 mcg/inh inhalation aerosol 1 puff, Inhalation, 2 times a day, # 1 each, 11 Refills, Maintenance, 08/31/19 10:44:34 EDT, Aerosol Start Date: 08/31/19 Status: OrderedhydrOXYzine pamoate 50 mg oral capsule 1 capsule, By Mouth, 4 times a day, PRN NEEDED FOR ANXIETY, # 100 capsule, 2 Refills, Acute, 01/10/20 8:25:00 EST, [facility], 180, cm, 08/31/19 10:06:00 EDT, Height, 96.36, kg, 12/06/18 14:07:00 EST, Dry Weight Start Date: 01/10/20 Status: OrderedNarcan Rescue Kit Narcan Rescue Kit, See Instructions, # 1 kit, Refills 0, Tot. Refills 0, Maintenance, Use as directed, 04/27/19 20:08:59 EDT, Compound Start Date: 04/27/19 Status: OrderedPARoxetine 20 mg oral tablet 1, tablet, By Mouth, Daily, # 30 tablet, Refills 3, Tot. Refills 0, Maintenance, 11/15/19 11:03:00 EST, Route to Pharmacy Electronically, [facility], 180, cm, 08/31/19 10:06:00 EDT, Height, 96.36,kg, 12/06/18 14:07:00 EST, Dry Weight Start Date: 11/15/19 Status: OrderedtraZODone 100 mg oral tablet See Instructions, 2 tabs PO QHS, # 180 tablet, Refills 5, Tot. Refills 5, Maintenance, 10/13/19 15:01:28 EST, Instructions Replace Required Details, Route to Pharmacy Electronically, [id number], [facility],... Start Date: 10/13/19 Status: Ordered Problem List Condition Effective Dates Status Health Status Informant Anxiety(Confirmed) Active Bipolar disorder, Active unspecified(Confirmed) Cannabis use disorder, moderate, Active dependence(Confirmed) Intermittent asthma(Confirmed) Active Intermittent explosive Active disorder(Confirmed) Polysubstance abuse(Confirmed) Active Alcohol use disorder, severe, Active dependence(Confirmed)
--- OUTSIDE RECORDS SUMMARY | 2022-10-07 13:09 | XMS_ITS | Continuity of Care Document ---
:1980 Author Organization [facility] Address [address] [place] [address]- Care Team Providers Name Role Phone Bc Chinchilla MD Primary Care Physician Encounter [facility] Date(s): 09/26/20 - 10/26/[address] [address]- Allergies, Adverse Reactions, Alerts Substance Reaction Severity [...] 11 Refills, Maintenance, 09/27/20 15:21:00 EST, Powder, [facility] [phone], 1 puffs Inhalation Every 6 hours,PRN:as needed, 180, cm, 09/27/20 15:18:00 EST, Height... Start Date: 09/27/20 Status: Ordereddivalproex sodium 250 mg oral tablet, extended release 1 tablet, By Mouth, Daily, IN THE AFTERNOON., # 30 tablet, 5 Refills, Maintenance, 07/03/20 9:17:00 EDT, [place], [place] - [phone], 180, cm, 08/31/19 10:06:00 EDT, Height, 96.36, kg, 12/06/18 14:07:00 EST, Dry Weight Start Date: 07/03/20 Status: Ordereddivalproex sodium 500 mg oral tablet, extended release See Instructions, TAKE ONE TABLET BY MOUTH EVERY MORNING AND TAKE 2 TABLETS BY MOUTH EVERY NIGHT AT BEDTIME, # 90 tablet, 2 Refills, Soft Stop, 10/04/20 9:16:00 EST, Tablet, [facility], [place] - [phone], 180, cm, 09/27/20 15:39:00 ES... Start Date: 10/04/20 Status: OrderedFlovent HFA 110 mcg/inh inhalation aerosol 1 puff, Inhalation, 2 times a day, # 1 each, 11 Refills, Maintenance, 09/27/20 15:21:00 EST, Aerosol, [facility], [place] - [phone], 180, cm, 09/27/20 15:18:00 EST, Height, 96.36, kg, 12/06/18 14:07:00 EST, Dry Weight Start Date: 09/27/20 Status: OrderedhydrOXYzine pamoate 50 mg oral capsule 1 capsule, By Mouth, 4 times a day, PRN NEEDED FOR ANXIETY, # 100 capsule, 2 Refills, Maintenance, 07/27/20 10:14:00 EDT, [facility], [facility] [phone], 180, cm, 08/31/19 10:06:00 EDT, Height, 96.36, [...] 07/27/20 10:15:00 EDT, Route to Pharmacy Electronically, [facility], [facility] [id number], 180, cm, 08/31/19 10:06:00 EDT, Height, 96.36, kg, 12/06/18 14:07... Start Date: 07/27/20 Status: OrderedtraZODone 100 mg oral tablet See Instructions, 2 tabs PO QHS, # 180 tablet, Refills 5, Tot. Refills 5, Maintenance, 10/13/19 15:01:28 EST, Instructions Replace Required Details, Route to Pharmacy Electronically, [id number], [facility],... Start Date: 10/13/19 Status: Ordered Problem List Condition Effective Dates Status Health Status Informant Anxiety(Confirmed) Active Bipolar disorder, Active unspecified(Confirmed) Cannabis use disorder, moderate, Active dependence(Confirmed) Intermittent asthma(Confirmed) Active Intermittent explosive Active disorder(Confirmed) Polysubstance abuse(Confirmed) Active Alcohol use disorder, severe, Active dependence(Confirmed)
== END 2022-10-07 13:27 | disposition home or self-care (01) ==
PROVIDERS: Emergency Provider Emergency Medicine
DX: L02.415 Cutaneous abscess of right lower limb (principal)
CPT/HCPCS: 99282